=== PATIENT | female | born 2000 | race Caucasian/White ===

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

== ENCOUNTER 2019-05-03 09:02 | Emergency (ER) | payer MEDICAID ==
[2019-05-03 09:15] VITALS: BP 122/90
[2019-05-03] MEDS ORDERED: FAMOTIDINE 20 MG TABLET PO STA (09:33)
[2019-05-03] MEDS ORDERED: LIDOCAINE VISCOUS 2% 15 ML UDC MM STA (09:33)
[2019-05-03] MEDS ORDERED: MAG HYDROX/AL HYDROX/SIMETH 30 ML UDC PO STA (09:33)
[2019-05-03] MEDS ORDERED: PROMETHAZINE 25 MG TABLET PO STA (09:33)
[2019-05-03] MEDS ORDERED: traMADol 50 MG TABLET PO STA (09:34)
--- NOTE | 2019-05-03 10:35 | Ultrasound Report ---
Reason: upper abd pain for 3 days Procedure Date: 05/03/2019 Accession Number: [id number] / [id number] Procedure: US - Abdomen Limited CPT Code: FULL RESULT: EXAM: ABDOMEN ULTRASOUND LIMITED, RUQ EXAM DATE: 05/03/2019 10:20 AM. CLINICAL HISTORY: Upper abdominal pain for 3 days in a 18-year-old female, with nausea and vomiting. COMPARISON: None. TECHNIQUE: Real-time scanning was performed on an emergent basis, with static images obtained. FINDINGS: Liver: Mildly heterogeneous echogenicity, slightly increased density. No mass or cyst. Normal contour. Normal liver length at 16 cm. Main portal vein flow: Hepatopetal. Gallbladder: Normal. No stones, wall thickening, or sonographic Cheney's sign. Biliary System: CBD measures 4 mm. No intrahepatic or extrahepatic ductal dilatation. Pancreas: Well visualized and normal in appearance. Right kidney: 11.4 cm in length. Normal echogenicity. Benign-appearing mid renal cyst 1.2 cm in maximum diameter. No solid mass, nephrolithiasis or hydronephrosis. Other: No free fluid or lymphadenopathy in the visualized abdomen. IMPRESSION: Mildly echogenic liver consistent with early fatty infiltration. No mass or cyst. Otherwise normal gallbladder and right upper quadrant abdominal ultrasound study, without demonstrated cause for the patient's symptoms. RADIA
[2019-05-03] MEDS ORDERED: HYDROcod/ACETAM 5/325 MG TABLET PO STA (10:42)
--- NOTE | 2019-05-03 10:45 | ED Physician Documentation ---
PD HPI ABD PAIN - Stated complaint Stated Complaint: ABD PX - Chief complaint Chief Complaint: Abd Pain - History obtained from History obtained from: Patient, Family (mom) - History of Present Illness Timing - onset: How many days ago (4) Timing - duration: Days (4) Timing - details: Gradual onset, Waxing and waning Quality: Aching, Pain Location: RUQ, Epigastric Radiation: No: Chest, Lower back Improved by: No: Eating, Meds (tylenol at home, TUMs) Worsened by: Eating, Breathing, Palpation Associated symptoms: Nausea, Vomiting, Loss of appetite. No: Fever, Diarrhea, Constipation, Melena, Dysuria, Chest pain Similar symptoms before: Has not had sx before Recently seen: Not recently seen Review of Systems Constitutional: denies: Fever, Chills, Myalgias Nose: denies: Rhinorrhea / runny nose, Congestion Throat: denies: Sore throat Cardiac: denies: Chest pain / pressure Respiratory: denies: Dyspnea, Cough GI: reports: Abdominal Pain, Nausea, Vomiting. denies: Diarrhea, Hematemesis, Bloody / black stool : denies: Dysuria, Frequency Skin: denies: Rash, Lesions PD PAST MEDICAL HISTORY - Past Medical History Past Medical History: Yes Neuro: Migraines - Past Surgical History Past Surgical History: Yes HEENT: Tonsil/Adenoidectomy - Present Medications Home Medications: Ambulatory Orders Medication Instructions Recorded Confirmed Control 1 tab DAILY 05/03/19 Famotidine 20 mg PO BID #30 tablet 05/03/19 Hydrocodone/Acetaminophen [Randall 1 each PO Q6H PRN #15 tablet 05/03/19 5-325 Tablet] Lidocaine Viscous 2% [Xylocaine 5 ml PO Q4H PRN #100 ml 05/03/19 Viscous 2%] Promethazine [Phenergan] 25 mg PO Q6H PRN #15 tab 05/03/19 - Allergies Allergies/Adverse Reactions: Allergies Allergy/AdvReac Type Severity Reaction Status Date / Time No Known Drug Allergies Allergy Verified 05/03/19 09:15 - Social History Does the pt smoke?: No Smoking Status: Never smoker Does the pt drink ETOH?: No Does the pt have substance abuse?: No - Immunizations Immunizations are current?: Yes - POLST Patient has POLST: No PD ED PE NORMAL - Vitals Vital signs reviewed: Yes - General General: Alert and oriented X 3, Well developed/nourished, Other (appears unco mfortable with upper abd pain) - HEENT HEENT: PERRL (nonicteric), Ears normal, Pharynx benign - Neck Neck: Supple, no meningeal sign, No adenopathy - Cardiac Cardiac: RRR, No murmur - Respiratory Respiratory: Clear bilaterally - Abdomen Abdomen: Normal bowel sounds, Soft, Non distended, No organomegaly, Other (Tender in the epigastric to right upper quadrant area. There is a negative Cheney sign but still some tender to the right upper abdomen as well. There is no percussion or rebound tenderness. The lower abdomen is not tender and does not refer to the upper abdomen.) - Female Female : Deferred - Rectal Rectal: Deferred - Back Back: No CVA TTP - Derm Derm: Normal color, Warm and dry - Neuro Neuro: Alert and oriented X 3, No motor deficit, Normal speech Results - Vitals Vitals: Vital Signs - 24 hr 05/03/19 09:07 Temperature 36 C L Heart Rate 72 Respiratory 16 Rate Blood Pressure 122/90 H O2 Saturation 100 Oxygen O2 Source Room air - Rads (name of study) abd U/S Radiology: Prelim report reviewed (normal GB; right renal cyst.), See rad report PD MEDICAL DECISION MAKING - ED course Complexity details: reviewed results (Ultrasound was normal. She was hurting more after the ultrasound due to the palpation. She had declined blood tests. I think her symptoms sound gastritis or ulcer and can treat it that way.), considered differential (Patient is adamant about not wanting blood drawn or IV due to significant needle phobia and anxiety. I told her and mom we could work with her and get the ultrasound and empirically try some medications. However if not improving well over the next couple of days or few days then might need to work around it and get some IV fluids and medicines and lab blood tests.), d/w patient Departure - Departure Disposition: 01 Home, Self Care Clinical Impression: Abdominal pain Qualifiers: Abdominal location: upper abdomen, unspecified Qualified Code(s): R10.10 - Upper abdominal pain, unspecified Condition: Stable Record reviewed to determine appropriate education?: Yes Instructions: ED PUD, ED Epigastric Pain UKO Follow-Up: Radha Mai ARNP [Primary Care Provider] - Prescriptions: Famotidine 20 mg PO BID #30 tablet Hydrocodone/Acetaminophen [Randall 5-325 Tablet] 1 each PO Q6H PRN #15 tablet PRN Reason: Pain Lidocaine Viscous 2% [Xylocaine Viscous 2%] 5 ml PO Q4H PRN #100 ml PRN Reason: Pain Promethazine [Phenergan] 25 mg PO Q6H PRN #15 tab PRN Reason: Nausea / Vomiting Comments: Your ultrasound shows a normal gallbladder and no obvious problems of the liver. There is incidentally a cyst on your kidney that should not be causing any of the symptoms. Your symptoms are most likely an irritation of the stomach, either gastritis or ulcer. These will be treated with acid reducing medicine and something to coat the stomach periodically. You can use promethazine for nausea as well and add Tylenol or hydrocodone if needed for pain. Do not take any aspirin or anti-inflammatories as this can bother her stomach more. Use antacids regularly and can combine the lidocaine with it. Recheck if not improving over the next few days and return sooner if worsening. If you are not improving well or worsening, would need to consider more strongly the need for IV medications and blood tests. I think you should get better with the above treatments however and not need those. Discharge Date/Time: 05/03/19 10:58
== END 2019-05-03 10:58 | disposition home or self-care (01) ==
LOC: ED 09:02
DX: R10.10 Upper abdominal pain, unspecified (principal)
CPT/HCPCS: 76705; 99283; A9270; Q0169

== ENCOUNTER 2019-11-06 11:04 | Emergency (ER) | payer MEDICAID ==
--- NOTE | 2019-11-06 12:10 | ED Physician Documentation ---
PD HPI URI - Stated complaint Stated Complaint: FLU LIKE SYMPTOMS - Chief complaint Chief Complaint: Resp - History obtained from History obtained from: Patient - History of Present Illness Timing - onset: How many days ago (3) Timing duration: Days (3) Timing details: Abrupt onset, Still present Associated symptoms: Fever, Chills, Nasal congestion, Dry cough, NVD (poor intake for 2 days.). No: Sore throat, Chest pain Contributing factors: No: Sick contact, Travel, Immunocompromised (She is not immunocompromised but is being evaluated at the by neurology and previously by endocrinology for ongoing fatigue and other neurologic symptoms, With current diagnosis of dysautonomia.) Improves by: No: Medication Worsened by: Activity Similar symptoms before: Has not had sx before Recently seen: Not recently seen Review of Systems Constitutional: reports: Fever, Chills, Myalgias Nose: denies: Rhinorrhea / runny nose, Congestion Throat: denies: Sore throat Respiratory: reports: Cough GI: reports: Nausea, Vomiting, Diarrhea. denies: Abdominal Pain : denies: Dysuria, Frequency Skin: denies: Rash, Lesions Neurologic: reports: Generalized weakness, Altered mental status (seemed slightly confused this morning, per mom.), Headache. denies: Focal weakness, Numbness, Near syncope Endocrine: denies: Weight loss Immunocompromised: denies: Immunocompromised PD PAST MEDICAL HISTORY - Past Medical History Neuro: Migraines - Past Surgical History Past Surgical History: Yes HEENT: Tonsil/Adenoidectomy - Present Medications Home Medications: Ambulatory Orders Medication Instructions Recorded Confirmed Butalb/Acetaminophen/Caffeine 1 each PO Q8H PRN #20 capsule 11/06/19 [Rcpwmv-Fqhcjptj-Qukz 50-325-40] Hydrocodone/Acetaminophen [Norman 1 each PO Q6H PRN #15 tablet 11/06/19 5-325 Tablet] Norethindrone [Darling] 0.35 mg PO DAILY 11/06/19 11/06/19 Omeprazole 20 mg PO DAILY 11/06/19 11/06/19 Ondansetron Odt [Zofran] 4 mg TL Q6H PRN #20 tablet 11/06/19 Prestique 50 mg ORAL DAILY 11/06/19 Promethazine Supp [Phenergan Supp] 25 mg SD Q6H PRN #6 supp 11/06/19 dexAMETHasone [Decadron] 4 mg PO DAILY #7 tablet 11/06/19 traZODone [Desyrel] 50 mg PO ONCE 11/06/19 11/06/19 - Allergies Allergies/Adverse Reactions: Allergies Allergy/AdvReac Type Severity Reaction Status Date / Time No Known Drug Allergies Allergy Verified 11/06/19 11:23 - Social History Does the pt smoke?: No Smoking Status: Never smoker Does the pt drink ETOH?: No Does the pt have substance abuse?: No - Immunizations Immunizations are current?: Yes - POLST Patient has POLST: No PD ED PE NORMAL - Vitals Vital signs reviewed: Yes - General General: Alert and oriented X 3, Well developed/nourished, Other (seems generally weak and ill) - HEENT HEENT: Ears normal, Pharynx benign. No: Moist mucous membranes - Neck Neck: Supple, no meningeal sign, No adenopathy - Cardiac Cardiac: No murmur. No: RRR (regular but tachycardic) - Respiratory Respiratory: Clear bilaterally - Abdomen Abdomen: Normal bowel sounds, Soft, Non tender, Non distended - Back Back: No CVA TTP - Derm Derm: Normal color, Warm and dry - Extremities Extremities: No deformity, No tenderness to palpate, Normal ROM s pain, No edema, No calf tenderness / cord - Neuro Neuro: Alert and oriented X 3, No motor deficit, Normal speech Eye Opening: Spontaneous Motor: Obeys Commands Verbal: Oriented GCS Score: 15 Results - Vitals Vitals: Vital Signs - 24 hr 11/06/19 11/06/19 11/06/19 11:17 13:23 13:37 Temperature 37.2 C Heart Rate 141 H 97 Respiratory 20 18 16 Rate Blood Pressure 120/71 118/84 H O2 Saturation 100 99 88 L 11/06/19 11/06/19 13:38 15:56 Temperature Heart Rate 86 Respiratory 16 18 Rate Blood Pressure 142/76 H O2 Saturation 94 98 Oxygen O2 Source Room air - Labs Labs: Laboratory Tests 11/06/19 11/06/19 11/06/19 13:05 13:09 13:09 WBC 7.0 RBC 4.84 Hgb 14.4 Hct 42.5 MCV 87.8 MCH 29.8 MCHC 33.9 RDW 12.1 Plt Count 241 MPV 10.1 Neut # (Auto) 6.1 Lymph # (Auto) 0.5 L Foard # (Auto) 0.4 Eos # (Auto) 0.0 Baso # (Auto) 0.0 Absolute Nucleated RBC 0.00 Nucleated RBC % 0.0 Sodium 136 Potassium 3.7 Chloride 101 Carbon Dioxide 23 Anion Gap 12.0 BUN 12 Creatinine 0.8 Estimated GFR (MDRD) 91 Glucose 92 Calcium 9.2 Magnesium 1.8 Total Bilirubin 0.4 AST 29 ALT 43 Alkaline Phosphatase 78 Total Protein 7.5 Albumin 4.6 Globulin 2.9 Albumin/Globulin Ratio 1.6 Lipase 31 TSH Influenza A (Rapid) Negative Influenza B (Rapid) POSITIVE H 11/06/19 13:09 WBC RBC Hgb Hct MCV MCH MCHC RDW Plt Count MPV Neut # (Auto) Lymph # (Auto) Foard # (Auto) Eos # (Auto) Baso # (Auto) Absolute Nucleated RBC Nucleated RBC % Sodium Potassium Chloride Carbon Dioxide Anion Gap BUN Creatinine Estimated GFR (MDRD) Glucose Calcium Magnesium Total Bilirubin AST ALT Alkaline Phosphatase Total Protein Albumin Globulin Albumin/Globulin Ratio Lipase TSH 1.29 Influenza A (Rapid) Influenza B (Rapid) PD MEDICAL DECISION MAKING - ED course Complexity details: re-evaluated patient (feels much better with IV fluids and meds. Re-exam showing alertness, supple neck, able to take PO fluids/food. ), considered differential, d/w patient Departure - Departure Disposition: 01 Home, Self Care Clinical Impression: Influenza B, Dehydration, Generalized weakness Headache Qualifiers: Headache type: unspecified Headache chronicity pattern: acute headache Intractability: not intractable Qualified Code(s): R51 - Headache Condition: Stable Record reviewed to determine appropriate education?: Yes Instructions: ED Dehydration, ED Flu Follow-Up: Radha Mai ARNP [Primary Care Provider] - Prescriptions: Butalb/Acetaminophen/Caffeine [[id number] 50-325-40] 1 each PO Q8H PRN #20 capsule PRN Reason: Migraine dexAMETHasone [Decadron] 4 mg PO DAILY #7 tablet Hydrocodone/Acetaminophen [Norman 5-325 Tablet] 1 each PO Q6H PRN #15 tablet PRN Reason: Pain Ondansetron Odt [Zofran] 4 mg TL Q6H PRN #20 tablet PRN Reason: Nausea / Vomiting Promethazine Supp [Phenergan Supp] 25 mg SD Q6H PRN #6 supp PRN Reason: Nausea / Vomiting Comments: Frequent fluids and try to stay well-hydrated. Your flu B test is positive. Use ondansetron if needed for nausea. Promethazine suppositories if needed for vomiting despite the ondansetron. Decadron steroid for inflammation to decrease symptoms. Take this daily for the next week. Add Tylenol or ibuprofen if needed for fevers and pains. Add hydrocodone if needed for worse pain. Fioricet if needed for migraine type headaches. Continue your other usual medicines. Expect about 7 to 10 days of illness with the worst being the first 3 to 5 days. Activity as tolerated. Recheck if not improved well over the next few days. Discharge Date/Time: 11/06/19 16:23
--- NOTE | 2019-11-06 12:12 | XRAY Report ---
Reason: productive cough, AMS Procedure Date: 11/06/2019 Accession Number: [id number] / [id number] Procedure: XR - Chest 2 View X-Ray CPT Code: 09049 Final Report FULL RESULT: EXAM: CHEST RADIOGRAPHY 2 VIEWS EXAM DATE: 11/06/2019. CLINICAL HISTORY: Productive cough. Altered mental status. COMPARISON: None. TECHNIQUE: PA and lateral views. FINDINGS: Lungs/Pleura: Normal vasculature. The lungs are clear. No pleural fluid or pneumothorax. Mediastinum: Normal cardiac and mediastinal contours. Bones: Mild dextroconvex thoracic scoliosis. IMPRESSION: No radiographic cardiopulmonary abnormality. RADIA
[2019-11-06] MEDS ORDERED: ONDANSETRON 4 MG/2 ML VIAL IVP STA (12:25)
[2019-11-06] MEDS ORDERED: SODIUM CHLORIDE 0.9% 1,000 ML IV ONE ×2 (12:25→12:26)
[2019-11-06] MEDS ORDERED: HYDROmorphone 2 MG/ML VIAL IVP STA (12:25)
[2019-11-06] MEDS ORDERED: DEXAMETHASONE 10 MG/ML VIAL IVP STA (12:25)
[2019-11-06] MEDS ORDERED: FAMOTIDINE 20 MG/2 ML VIAL IVP STA (12:25)
[2019-11-06 13:17] LABS: BASOPHILS % (AUTO) 0.1 %; EOSINOPHILS % (AUTO) 0.1 %; HGB - HEMOGLOBIN 14.4 g/dL (12.0-16.0); LYMPHOCYTES # (AUTO) 0.5 10^3/uL (1.5-3.5); LYMPHOCYTES % (AUTO) 7.4 %; MEAN CORPUSCULAR HEMOGLOBIN 29.8 pg (27.0-31.0); MEAN CORPUSCULAR HGB CONC 33.9 g/dL (32.0-36.0); MEAN CORPUSCULAR VOLUME 87.8 fL (81.0-99.0); MEAN PLATELET VOLUME 10.1 fL (7.9-10.8); MONOCYTES # (AUTO) 0.4 10^3/uL (0.0-1.0); NEUTROPHILS # (AUTO) 6.1 10^3/uL (1.5-6.6); PLT - PLATELET COUNT 241 10^3/uL (130-450); RED BLOOD COUNT 4.84 10^6/uL (4.20-5.40); RED CELL DISTRIBUTION WIDTH 12.1 % (12.0-15.0)
[2019-11-06 13:29] LABS: ALBUMIN 4.6 g/dL (3.2-5.5); ALBUMIN/GLOBULIN RATIO 1.6 (1.0-2.2); BILIRUBIN,TOTAL 0.4 mg/dL (0.2-1.0); CALCIUM 9.2 mg/dL (8.5-10.3); CREATININE 0.8 mg/dL (0.4-1.0); MAGNESIUM 1.8 mg/dL (1.7-2.8); TOTAL PROTEIN 7.5 g/dL (6.7-8.2)
[2019-11-06 15:57] VITALS: BP 142/76
== END 2019-11-06 16:23 | disposition home or self-care (01) ==
LOC: ED 11:04
DX: J10.89 Influenza due to other identified influenza virus with other manifestations (principal); J10.2 Influenza due to other identified influenza virus with gastrointestinal manifestations; E86.0 Dehydration; R51 Headache; R53.1 Weakness; R50.9 Fever, unspecified
CPT/HCPCS: 36415; 71046; 80053; 83690; 83735; 84443; 85025; 87275; 87276; 96361; 96374; 99284; 99285; J1170

== ENCOUNTER 2019-12-12 12:14 | Outpatient (CLI) | payer MEDICAID | END 2019-12-12 12:15 | disposition home or self-care (01) | LOC: LAB 12:14 | PROVIDERS: ATTEND Psychiatry & Neurology Neurology | DX: I95.1 Orthostatic hypotension (principal); G90.3 Multi-system degeneration of the autonomic nervous system; G90.09 Other idiopathic peripheral autonomic neuropathy | CPT/HCPCS: 36415; 80500; 81599; 82384; 82784; 82785; 83088; 83520; 83835; 85613; 85730; 86146; 86147; 86235; 86316; 86334 ==

== ENCOUNTER 2019-12-14 08:00 | Outpatient (CLI) | payer MEDICAID | END 2019-12-14 23:59 | disposition home or self-care (01) | LOC: LAB.R 08:00 | PROVIDERS: ATTEND Psychiatry & Neurology Neurology | DX: I95.1 Orthostatic hypotension (principal) | CPT/HCPCS: 81599; 83088; 83497 ==

== ENCOUNTER 2020-01-03 05:45 | Outpatient (CLI) | payer MEDICAID | END 2020-01-03 05:46 | disposition EMS.NT | LOC: EMS 05:45 | PROVIDERS: ATTEND Surgery | DX: R11.2 Nausea with vomiting, unspecified (principal) ==

== ENCOUNTER 2020-01-11 15:40 | Outpatient (CLI) | payer MEDICAID | END 2020-01-11 15:41 | disposition critical access hospital (66) | LOC: EMS 15:40 | PROVIDERS: ATTEND Surgery | DX: R53.1 Weakness (principal); R52 Pain, unspecified | CPT/HCPCS: A0425; A0429; A0999 ==

== ENCOUNTER 2020-01-11 16:15 | Emergency (ER) | payer MEDICAID ==
[2020-01-11 16:36] VITALS: BP 150/128
== END 2020-01-11 16:42 | disposition left against medical advice (07) ==
LOC: EDUNIT# → ED 16:15
DX: Z53.21 Procedure and treatment not carried out due to patient leaving prior to being seen by health care provider (principal)

== ENCOUNTER 2020-06-30 04:23 | Outpatient (CLI) | payer MEDICAID | END 2020-06-30 04:24 | disposition critical access hospital (66) | LOC: EMS 04:23 | PROVIDERS: ATTEND Surgery | DX: F41.9 Anxiety disorder, unspecified (principal); R44.9 Unspecified symptoms and signs involving general sensations and perceptions | CPT/HCPCS: A0425; A0427 ==

== ENCOUNTER 2020-06-30 04:53 | Emergency (ER) | payer MEDICAID ==
--- NOTE | 2020-06-30 05:03 | ED Physician Documentation ---
History of Present Illness - Stated complaint Stated Complaint: PAIN - Chief complaint Chief Complaint: General - History obtained from History obtained from: Patient - Additonal information Additional information: The patient is a 19-year-old female brought in by ambulance for dehydration. She reports that she chronically gets dehydrated and has to come into the emergency room periodically for IV fluids she also reports that she has myasthenia gravis as well she denies any acute weakness or fevers she reports she does not feel as energetic as her usual self she also reports that she has not been able to eat or drink anything for the last 48 hours and has not peed in over a day.Otherwise she denies any other complaints and she is asking for 2 bags of IV fluids. Review of Systems Constitutional: reports: Fatigue Eyes: reports: Reviewed and negative Ears: reports: Reviewed and negative Nose: reports: Reviewed and negative Throat: reports: Reviewed and negative Cardiac: reports: Reviewed and negative Respiratory: reports: Reviewed and negative GI: reports: Reviewed and negative : reports: Reviewed and negative Skin: reports: Reviewed and negative Musculoskeletal: reports: Reviewed and negative Neurologic: reports: Generalized weakness Psychiatric: reports: Reviewed and negative Endocrine: reports: Reviewed and negative Immunocompromised: reports: Reviewed and negative PD PAST MEDICAL HISTORY - Past Medical History Neuro: Migraines - Past Surgical History Past Surgical History: Yes HEENT: Tonsil/Adenoidectomy - Present Medications Home Medications: Ambulatory Orders Medication Instructions Recorded Confirmed Butalb/Acetaminophen/Caffeine 1 each PO Q8H PRN #20 capsule 11/06/19 04/03/20 [Labipj-Gtntfohj-Dnwy 50-325-40] Hydrocodone/Acetaminophen [Harrison 1 each PO Q6H PRN #15 tablet 11/06/19 04/03/20 5-325 Tablet] Norethindrone [Darling] 0.35 mg PO DAILY 11/06/19 04/03/20 Omeprazole 20 mg PO DAILY 11/06/19 04/03/20 Prestique 50 mg ORAL DAILY 11/06/19 04/03/20 traZODone [Desyrel] 50 mg PO ONCE 11/06/19 04/03/20 Ondansetron Odt [Zofran] 4 mg TL Q6H PRN #10 tablet 01/03/20 04/03/20 - Allergies Allergies/Adverse Reactions: Allergies Allergy/AdvReac Type Severity Reaction Status Date / Time No Known Drug Allergies Allergy Verified 06/30/20 05:01 - Social History Does the pt smoke?: No Smoking Status: Never smoker Does the pt drink ETOH?: No Does the pt have substance abuse?: No - Immunizations Immunizations are current?: Yes - POLST Patient has POLST: No PD ED PE NORMAL - Vitals Vital signs reviewed: Yes - General General: Alert and oriented X 3, No acute distress, Well developed/nourished - HEENT HEENT: Atraumatic, PERRL, EOMI, Ears normal, Moist mucous membranes, Pharynx benign, Dentition benign - Neck Neck: Supple, no meningeal sign, No adenopathy, Thyroid normal, No JVD - Cardiac Cardiac: RRR, No murmur, No gallop, No rub, Strong equal pulses - Respiratory Respiratory: No respiratory distress, Clear bilaterally - Abdomen Abdomen: Normal bowel sounds, Soft, Non tender, Non distended, No organomegaly - Female Female : Deferred - Rectal Rectal: Deferred - Back Back: No CVA TTP, No spinal TTP - Derm Derm: Normal color, Warm and dry, No rash - Extremities Extremities: No deformity, No tenderness to palpate, Normal ROM s pain, No edema, No calf tenderness / cord - Neuro Neuro: Alert and oriented X 3, 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, No motor deficit, No sensory deficit, Normal speech - Psych Psych: Normal mood, Normal affect Results - Vitals Vitals: Vital Signs - 24 hr 06/30/20 06/30/20 05:01 05:04 Temperature 37 C Heart Rate 96 104 H Respiratory 18 18 Rate Blood Pressure 116/88 H 127/75 O2 Saturation 100 98 Oxygen O2 Source Room air - Labs Labs: Laboratory Tests 06/30/20 06/30/20 05:32 05:32 WBC 8.1 RBC 3.81 L Hgb 11.4 L Hct 34.2 L MCV 89.8 MCH 29.9 MCHC 33.3 RDW 11.9 L Plt Count 256 MPV 9.8 Neut # (Auto) 4.4 Lymph # (Auto) 2.9 Roberts # (Auto) 0.6 Eos # (Auto) 0.2 Baso # (Auto) 0.0 Absolute Nucleated RBC 0.00 Nucleated RBC % 0.0 Sodium 138 Potassium 3.5 Chloride 104 Carbon Dioxide 24 Anion Gap 10.0 BUN 17 Creatinine 0.7 Estimated GFR (MDRD) 107 Glucose 100 Calcium 8.4 L Total Bilirubin 0.6 AST 20 ALT 28 Alkaline Phosphatase 80 Total Protein 6.0 L Albumin 3.7 Globulin 2.3 Albumin/Globulin Ratio 1.6 Lipase 29 PD MEDICAL DECISION MAKING - ED course Complexity details: considered differential (Possible dehydration her vital signs are unremarkable she is afebrile she is not tachycardic not hypotensive given the fact that the patient's that she has not had anything to eat or drink for 2 days we will hydrate this patient with 2 L of IV fluids), other (CBC and CMP are unremarkable. Patient observed for about an hour and a half she is tolerated p.o. challenge now is requesting to be discharged home.) Departure - Departure Disposition: 01 Home, Self Care Clinical Impression: Muscle weakness, Dehydration Condition: Stable Instructions: ED Weakness UKO, ED Dehydration Follow-Up: your, doctor [Other] Comments: please follow up with your primary care provider today.
[2020-06-30] MEDS ORDERED: SODIUM CHLORIDE 0.9% 1,000 ML IV STA ×2 (05:23→05:50)
[2020-06-30 05:37] LABS: BASOPHILS % (AUTO) 0.5 %; EOSINOPHILS # (AUTO) 0.2 10^3/uL (0.0-0.7); HGB - HEMOGLOBIN 11.4 g/dL (12.0-16.0); LYMPHOCYTES # (AUTO) 2.9 10^3/uL (1.5-3.5); LYMPHOCYTES % (AUTO) 35.9 %; MEAN CORPUSCULAR HEMOGLOBIN 29.9 pg (27.0-31.0); MEAN CORPUSCULAR HGB CONC 33.3 g/dL (32.0-36.0); MEAN CORPUSCULAR VOLUME 89.8 fL (81.0-99.0); MEAN PLATELET VOLUME 9.8 fL (7.9-10.8); MONOCYTES # (AUTO) 0.6 10^3/uL (0.0-1.0); MONOCYTES % (AUTO) 7.1 %; NEUTROPHILS # (AUTO) 4.4 10^3/uL (1.5-6.6); NEUTROPHILS % (AUTO) 54.3 %; PLT - PLATELET COUNT 256 10^3/uL (130-450); RED BLOOD COUNT 3.81 10^6/uL (4.20-5.40); RED CELL DISTRIBUTION WIDTH 11.9 % (12.0-15.0); WHITE BLOOD COUNT 8.1 x10^3/uL (4.8-10.8)
[2020-06-30 05:52] LABS: ALBUMIN 3.7 g/dL (3.2-5.5); ALBUMIN/GLOBULIN RATIO 1.6 (1.0-2.2); BILIRUBIN,TOTAL 0.6 mg/dL (0.2-1.0); CALCIUM 8.4 mg/dL (8.5-10.3); CREATININE 0.7 mg/dL (0.4-1.0)
[2020-06-30 06:52] VITALS: BP 90/48
== END 2020-06-30 07:05 | disposition home or self-care (01) ==
LOC: ED 04:53
DX: E86.0 Dehydration (principal); M62.81 Muscle weakness (generalized); G70.00 Myasthenia gravis without (acute) exacerbation
CPT/HCPCS: 36415; 80053; 83690; 85025; 96361; 96374; 99283

== ENCOUNTER 2020-07-01 15:15 | Outpatient (CLI) | payer MEDICAID ==
--- NOTE | 2020-07-01 17:11 | CT Report ---
PROCEDURE: CHEST WO INDICATIONS: MYASTHENIA GRAVIS WITH EXACERBATION TECHNIQUE: Noncontrast 5 mm thick sections acquired from the pulmonary apices to the posterior costophrenic angl es. 7 mm thick coronal and sagittal MIP reformats were then acquired. For radiation dose reduction, the following was used: automated exposure control, adjustment of mA and/or kV according to patient size. COMPARISON: Two-view chest 11/16/2019. FINDINGS: Image quality: Excellent. Lungs and pleura: No acute air space opacities. No pleural effusions or pneumothorax. Central and peripheral airways are patent and normal in caliber. Mediastinum: Heart size is normal. No pericardial effusion. No mediastinal adenopathy by size crit eria. Thoracic aorta and central pulmonary arteries are normal in size. Esophagus is normal in gwendolyn leyla. No hiatal hernia. There is a Port-A-Cath from a right-sided approach extending into the distal SVC. Bones and chest wall: No suspicious bony lesions. No vertebral body compression fractures. No axil jesse or supraclavicular adenopathy by size criteria. The thyroid is normal in size. Abdomen: Visualized upper abdominal solid organs and bowel loops appear normal in the absence of con trast. IMPRESSION: Port-A-Cath in normal position. No mediastinal or hilar mass is found, no abnormal soft tissue promin ence is seen within the anterior mediastinum. The study is performed without intravenous contrast and therefore quality of visualization of the solid organs of the upper abdomen and the mediastinal stru ctures is somewhat limited. No acute disease. Reviewed by: Kolton Child MD on 07/01/2020 5:10 PM PDT Approved by: Kolton Child MD on 07/01/2020 5:10 PM PDT Station ID: [id number]
== END 2020-07-01 15:16 | disposition home or self-care (01) ==
LOC: DI 15:15
PROVIDERS: ATTEND Psychiatry & Neurology Neurology
DX: G70.01 Myasthenia gravis with (acute) exacerbation (principal); Z95.828 Presence of other vascular implants and grafts
CPT/HCPCS: 71250

== ENCOUNTER 2020-07-03 00:46 | Emergency (ER) | payer MEDICAID ==
--- NOTE | 2020-07-03 01:01 | ED Physician Documentation ---
PD HPI ABD PAIN - Stated complaint Stated Complaint: ABD PX - Chief complaint Chief Complaint: Abd Pain - History obtained from History obtained from: Patient - History of Present Illness Timing - onset: How many days ago (4) Timing - duration: Days (4) Timing - details: Waxing and waning Quality: Cramping Location: Other (across lower abdomen) Improved by: Other (nothing) Worsened by: Other ( no exacerbating factors) Associated symptoms: Nausea, Vomiting. No: Fever, Diarrhea, Constipation, Vaginal bleeding, Vaginal dc Similar symptoms before: Other (patient says she has not had this abdominal pain before) Recently seen: Emergency Dept (T+R 06/30/20 for nausea vomiting; ROS indicates cramping abdominal pain but patient says she has not had this abdominal pain before) - Additional information Additional information: c/o 4 days of lower abdominal cramping pains with nausea and vomiting. At that time she had unremarkable blood tests and improved with IV fluids. She says she took zofran tonight without improvement. She says she is not , cites recent negative test (2 weeks ago to clear her for chest port placement), and that she is also on oral BCP. She is sexually active Review of Systems Constitutional: denies: Fever, Chills, Sweats Cardiac: reports: Reviewed and negative Respiratory: reports: Reviewed and negative GI: reports: Abdominal Pain, Nausea, Vomiting. denies: Abdominal Swelling, Constipation, Diarrhea : denies: Now EGA (patient says she had negative test approximately 2 weeks ago to clear her for having chest port placed (in anticipation of IVIG for recently diagnosed myasthenia gravis),) PD PAST MEDICAL HISTORY - Past Medical History Neuro: Migraines - Past Surgical History Past Surgical History: Yes HEENT: Tonsil/Adenoidectomy - Present Medications Home Medications: Ambulatory Orders Medication Instructions Recorded Confirmed Butalb/Acetaminophen/Caffeine 1 each PO Q8H PRN #20 capsule 11/06/19 04/03/20 [Uqwywj-Xrazcydd-Skgi 50-325-40] Hydrocodone/Acetaminophen [[place] 1 each PO Q6H PRN #15 tablet 11/06/19 04/03/20 5-325 Tablet] Norethindrone [Darling] 0.35 mg PO DAILY 11/06/19 04/03/20 Omeprazole 20 mg PO DAILY 11/06/19 04/03/20 Prestique 50 mg ORAL DAILY 11/06/19 04/03/20 traZODone [Desyrel] 50 mg PO ONCE 11/06/19 04/03/20 Ondansetron Odt [Zofran] 4 mg TL Q6H PRN #10 tablet 01/03/20 04/03/20 - Allergies Allergies/Adverse Reactions: Allergies Allergy/AdvReac Type Severity Reaction Status Date / Time No Known Drug Allergies Allergy Verified 07/03/20 01:00 - Social History Does the pt smoke?: No Smoking Status: Never smoker Does the pt drink ETOH?: No Does the pt have substance abuse?: No - Immunizations Immunizations are current?: Yes - POLST Patient has POLST: No PD ED PE NORMAL - Vitals Vital signs reviewed: Yes - General General: Alert and oriented X 3, No acute distress, Well developed/nourished - HEENT HEENT: Moist mucous membranes - Neck Neck: Supple, no meningeal sign - Cardiac Cardiac: RRR, No murmur - Respiratory Respiratory: No respiratory distress, Clear bilaterally - Abdomen Abdomen: Soft, Non tender - Back Back: No CVA TTP - Derm Derm: Normal color, Warm and dry Results - Vitals Vitals: Vital Signs - 24 hr 07/03/20 07/03/20 07/03/20 00:50 01:01 02:21 Temperature 35.8 C L Heart Rate 98 88 72 Respiratory 18 18 16 Rate Blood Pressure 118/77 118/77 129/85 H O2 Saturation 97 98 98 07/03/20 07/03/20 04:00 06:00 Temperature Heart Rate 78 80 Respiratory 16 16 Rate Blood Pressure 132/70 H 149/98 H O2 Saturation 100 100 Oxygen O2 Source Room air - Labs Labs: Laboratory Tests 07/03/20 07/03/20 07/03/20 01:30 01:30 01:30 WBC 8.7 RBC 4.37 Hgb 13.0 Hct 38.6 MCV 88.3 MCH 29.7 MCHC 33.7 RDW 11.8 L Plt Count 266 MPV 10.0 Neut # (Auto) 4.9 Lymph # (Auto) 3.0 [place] # (Auto) 0.6 Eos # (Auto) 0.2 Baso # (Auto) 0.0 Absolute Nucleated RBC 0.00 Nucleated RBC % 0.0 Sodium 136 Potassium 3.7 Chloride 105 Carbon Dioxide 24 Anion Gap 7.0 BUN 11 Creatinine 0.6 Estimated GFR (MDRD) 127 Glucose 95 Calcium 9.0 Total Bilirubin 0.7 AST 22 ALT 30 Alkaline Phosphatase 71 Total Protein 6.8 Albumin 4.3 Globulin 2.5 Albumin/Globulin Ratio 1.7 Lipase 30 Serum HCG, Qual POSITIVE HCG, Quant 07/03/20 01:30 WBC RBC Hgb Hct MCV MCH MCHC RDW Plt Count MPV Neut # (Auto) Lymph # (Auto) [place] # (Auto) Eos # (Auto) Baso # (Auto) Absolute Nucleated RBC Nucleated RBC % Sodium Potassium Chloride Carbon Dioxide Anion Gap BUN Creatinine Estimated GFR (MDRD) Glucose Calcium Total Bilirubin AST ALT Alkaline Phosphatase Total Protein Albumin Globulin Albumin/Globulin Ratio Lipase Serum HCG, Qual HCG, Quant 73397.00 - Rads (name of study) pelvic US Radiology: Prelim report reviewed, See rad report PD MEDICAL DECISION MAKING - ED course Complexity details: reviewed old records, reviewed results, re-evaluated patient, considered differential, d/w patient ED course: I initially ordered CT A/P for abdominal pain with mild TTP across lower abdomen and epigastrium. monogram technician informed me that patient was not as confident in denying possibility of as patient was when I interviewed her, and thus HCG ordered (serum ordered, as patient did not feel like she was able to provide urine sample). The serum HCG returned (+), and subsequent quantitative results is over 22,000. US reveals IUP, 5w5d by US. Patient was given toradol and zofran along with IV fluids on presentation, which provided symptomatic improvement. Results d/w patient, she is very distressed by the results and tells me she wants to have the terminated as soon as possible, asks if there is a pharmaceutical (medication) option for this. I d/w Dr. Pugh, feels that misoprostol would be a good option if patient wants to terminate the , but that the effectiveness would potentially be countered by the toradol, and thus recommendation is d/c with follow up later this morning in customer sales advisor office. I discussed with the patient and she is comfortable with this approach. Given two tablets PO vicodin prior to d/c due to gradually returning abdominal/pelvic pain. Patient's initial exam and repeat exams are not suggestive of surgical abdominal emergent pathology. Departure - Departure Disposition: 01 Home, Self Care Clinical Impression: Abdominal pain Qualifiers: Abdominal location: lower abdomen, unspecified Qualified Code(s): R10.30 - Lower abdominal pain, unspecified Qualifiers: Weeks of gestation: less than 8 weeks Qualified Code(s): Z3A.01 - Less than 8 weeks gestation of Condition: Good Instructions: ED Pelvic Pain UKO, ED Preg Established Normal Sxs Follow-Up: Betzy Pugh MD [Provider Admit Priv/Credential] - (Follow up today before noon) Discharge Date/Time: 07/03/20 06:44
[2020-07-03] MEDS ORDERED: SODIUM CHLORIDE 0.9% 1,000 ML IV STA (01:25)
[2020-07-03 01:47] LABS: BASOPHILS % (AUTO) 0.3 %; EOSINOPHILS # (AUTO) 0.2 10^3/uL (0.0-0.7); EOSINOPHILS % (AUTO) 1.8 %; LYMPHOCYTES % (AUTO) 34.2 %; MEAN CORPUSCULAR HEMOGLOBIN 29.7 pg (27.0-31.0); MEAN CORPUSCULAR HGB CONC 33.7 g/dL (32.0-36.0); MEAN CORPUSCULAR VOLUME 88.3 fL (81.0-99.0); MONOCYTES # (AUTO) 0.6 10^3/uL (0.0-1.0); MONOCYTES % (AUTO) 6.3 %; NEUTROPHILS # (AUTO) 4.9 10^3/uL (1.5-6.6); NEUTROPHILS % (AUTO) 56.9 %; PLT - PLATELET COUNT 266 10^3/uL (130-450); RED BLOOD COUNT 4.37 10^6/uL (4.20-5.40); RED CELL DISTRIBUTION WIDTH 11.8 % (12.0-15.0); WHITE BLOOD COUNT 8.7 x10^3/uL (4.8-10.8)
[2020-07-03] MEDS ORDERED: ONDANSETRON 4 MG/2 ML VIAL IVP STA (01:54)
[2020-07-03] MEDS ORDERED: KETOROLAC 30 MG/ML VIAL IVP STA (01:54)
[2020-07-03 02:00] LABS: ALBUMIN 4.3 g/dL (3.2-5.5); ALBUMIN/GLOBULIN RATIO 1.7 (1.0-2.2); BILIRUBIN,TOTAL 0.7 mg/dL (0.2-1.0); CREATININE 0.6 mg/dL (0.4-1.0); TOTAL PROTEIN 6.8 g/dL (6.7-8.2)
[2020-07-03 02:49] LABS: HCG,QUALITATIVE BLOOD POSITIVE
[2020-07-03 06:17] VITALS: BP 149/98
[2020-07-03] MEDS ORDERED: HYDROcod/ACETAM 5/325 MG TABLET PO STA (06:27)
--- NOTE | 2020-07-03 10:18 | Ultrasound Report ---
PROCEDURE: OB First Trimester INDICATIONS: abd. pain, OUTSIDE/PRIOR DATING DATA: Last menstrual period (LMP): Unknown. LMP-based estimated date of delivery (DALIA): Unknown. First dating scan (date and location): 07/30/2020. Estimated date of delivery (DALIA) from first dating scan: 02/28/2021. TECHNIQUE: Real-time scanning was performed of the fetus and maternal pelvic organs, with image documentation. COMPARISON: None FINDINGS: Embryo: Live intrauterine is identified with crown-rump length measuring 0.2 cm correspond ing to 5 weeks 5 days. There is a 1 x 1.1 x 1.7 mm echogenic structure within the gestational sac jigar ng the peripheral margin. There is no associated clearly defined yolk sac or heart tones. Minim al subchorionic hemorrhage is noted. Measurement variability in dating: +/- 4 weeks by LMP, +/- 7 days by mean sac diameter (use before 6 weeks gestation if crown-rump length not able to be measured), +/- 5 days by crown-rump length (6-12 weeks gestation). Maternal organs: Ovaries demonstrate corpus luteal cyst. Limited images through the kidneys demonstr ate no hydronephrosis. IMPRESSION: 1. Intrauterine, live with crown-rump length measuring 5 weeks 5 days as above. 2. Minimal subchorionic hemorrhage. 3. 1 x 1.1 x 1.7 mm echogenic structure within the gestational sac along the peripheral margin as abo ve. There is no defined yolk sac or heart tones. It is not clearly defined. A second focus of pregnan cy cannot be excluded. Given early gestational age, recommend correlation of beta hCG levels and shor t interval imaging follow-up for additional evaluation of potential nonviable pole or potential development of viability. The above findings are concordant with preliminary report. Reviewed by: Lalita Anderson MD on 07/03/2020 10:16 AM PDT Approved by: Lalita Anderson MD on 07/03/2020 10:16 AM PDT Station ID: [id number]
== END 2020-07-03 06:44 | disposition home or self-care (01) ==
LOC: ED 00:46
DX: O99.89 Other specified diseases and conditions complicating pregnancy, childbirth and the puerperium (principal); R10.30 Lower abdominal pain, unspecified; Z3A.01 Less than 8 weeks gestation of pregnancy; Z32.01 Encounter for pregnancy test, result positive
CPT/HCPCS: 36415; 76801; 76817; 80053; 83690; 84702; 84703; 85025; 86900; 86901; 96374; 99284; A9270

== ENCOUNTER 2020-07-03 08:00 | Outpatient (CLI) | payer MEDICAID | END 2020-07-03 23:59 | disposition home or self-care (01) | LOC: LAB 08:00 | PROVIDERS: ATTEND Obstetrics & Gynecology | DX: Z32.01 Encounter for pregnancy test, result positive (principal) | CPT/HCPCS: 86900; 86901 ==

== ENCOUNTER 2020-08-10 18:05 | Emergency (ER) | payer MEDICAID ==
[2020-08-10] MEDS ORDERED: SODIUM CHLORIDE 0.9% 2,000 ML IV STA (18:37)
--- NOTE | 2020-08-10 19:16 | ED Physician Documentation ---
History of Present Illness - Stated complaint Stated Complaint: BODY PX/WEAK/CAN'T CONTROL MUSCLES - Chief complaint Chief Complaint: General - History obtained from History obtained from: Patient - History of Present Illness Timing: Today Pain level max: 0 Pain level now: 0 - Additonal information Additional information: Presents to the emergency department stating that she is having a "MS flare". She states that she received IVIG a week ago and since that time has had body aches, weakness and spasm. States she feels dehydrated. She states that she talk to her neurologist at [facility], Dr. Uriostegui who recommended she come to the emergency department for IV fluids and pain control. Patient states that she took a Vicodin and smoked marijuana without relief Review of Systems Ten Systems: 10 systems reviewed and negative Constitutional: denies: Fever, Chills Respiratory: denies: Cough GI: denies: Nausea, Vomiting, Diarrhea : denies: Dysuria Skin: denies: Rash Musculoskeletal: denies: Neck pain, Back pain Neurologic: reports: Generalized weakness. denies: Headache PD PAST MEDICAL HISTORY - Past Medical History Past Medical History: Yes Neuro: Migraines - Past Surgical History Past Surgical History: Yes HEENT: Tonsil/Adenoidectomy - Present Medications Home Medications: Ambulatory Orders Medication Instructions Recorded Confirmed Butalb/Acetaminophen/Caffeine 1 each PO Q8H PRN #20 capsule 11/06/19 04/03/20 [Ppmofw-Crhuyhuh-Mwnq 50-325-40] Hydrocodone/Acetaminophen [[place] 1 each PO Q6H PRN #15 tablet 11/06/19 04/03/20 5-325 Tablet] Norethindrone [Darling] 0.35 mg PO DAILY 11/06/19 04/03/20 Omeprazole 20 mg PO DAILY 11/06/19 04/03/20 Prestique 50 mg ORAL DAILY 11/06/19 04/03/20 traZODone [Desyrel] 50 mg PO ONCE 11/06/19 04/03/20 Ondansetron Odt [Zofran] 4 mg TL Q6H PRN #10 tablet 01/03/20 04/03/20 - Allergies Allergies/Adverse Reactions: Allergies Allergy/AdvReac Type Severity Reaction Status Date / Time No Known Drug Allergies Allergy Verified 08/10/20 18:32 - Social History Does the pt smoke?: No Smoking Status: Never smoker Does the pt drink ETOH?: No Does the pt have substance abuse?: No - Immunizations Immunizations are current?: Yes - POLST Patient has POLST: No PD ED PE NORMAL - Vitals Vital signs reviewed: Yes - General General: Alert and oriented X 3, No acute distress, Well developed/nourished - HEENT HEENT: PERRL, Moist mucous membranes - Neck Neck: Supple, no meningeal sign - Cardiac Cardiac: RRR, Strong equal pulses - Respiratory Respiratory: No respiratory distress, Clear bilaterally - Abdomen Abdomen: Soft, Non tender, Non distended - Derm Derm: Warm and dry - Extremities Extremities: No edema, No calf tenderness / cord - Neuro Neuro: Alert and oriented X 3, 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, No motor deficit, No sensory deficit, Normal speech - Psych Psych: Normal mood, Normal affect Results - Vitals Vitals: Vital Signs - 24 hr 08/10/20 08/10/20 18:32 21:02 Temperature 36.5 C 36.7 C Heart Rate 90 74 Respiratory 16 12 Rate Blood Pressure 116/81 H 101/66 O2 Saturation 98 98 Oxygen O2 Source Room air - Labs Labs: Laboratory Tests 08/10/20 08/10/20 08/10/20 20:09 20:10 20:10 WBC 5.5 RBC 4.32 Hgb 12.7 Hct 38.8 MCV 89.8 MCH 29.4 MCHC 32.7 RDW 11.9 L Plt Count 208 MPV 10.3 Neut # (Auto) 2.5 Lymph # (Auto) 2.3 [place] # (Auto) 0.4 Eos # (Auto) 0.2 Baso # (Auto) 0.0 Absolute Nucleated RBC 0.00 Nucleated RBC % 0.0 Sodium 137 Potassium 4.1 Chloride 103 Carbon Dioxide 26 Anion Gap 8.0 BUN 12 Creatinine 0.6 Estimated GFR (MDRD) 127 Glucose 97 Calcium 8.8 Total Bilirubin 0.4 AST 45 H ALT 70 H Alkaline Phosphatase 75 Total Protein 7.7 Albumin 3.6 Globulin 4.1 Albumin/Globulin Ratio 0.9 L Lipase 35 Urine Color YELLOW Urine Clarity CLEAR Urine pH 7.0 Ur Specific [place] 1.025 Urine Protein NEGATIVE Urine Glucose (UA) NEGATIVE Urine Ketones NEGATIVE Urine Occult Blood NEGATIVE Urine Nitrite NEGATIVE Urine Bilirubin NEGATIVE Urine Urobilinogen 0.2 (NORMAL) Ur Leukocyte Esterase NEGATIVE Ur Microscopic Review NOT INDICATED Urine Culture Comments NOT INDICATED Urine HCG, Qual NEGATIVE PD MEDICAL DECISION MAKING - ED course Complexity details: reviewed results, re-evaluated patient, considered differential, d/w patient, d/w family ED course: Patient feels better after IV fluids. She also received Toradol and morphine. Pain well controlled. Attempted to contact [facility] neurology starting at approximately 2029., No callback. Recontacted at 2144. Spoke with Dr. Cevallos, neurology at [facility]. Do not feel that this represents a MS flare. We will hold steroids at this time. No headache. No visual changes. No focal neurological deficits. Patient states she feels much better after pain meds and IV fluids. She requests to go home at this time. Patient will follow-up with her neurologist tomorrow. Patient counseled regarding signs and symptoms for which I believe and urgent re-evaluation would be necessary. Patient with good understanding of and agreement to plan and is comfortable going home at this time This document was made in part using voice recognition software. While efforts are made to proofread this document, sound alike and grammatical errors may occur. Departure - Departure Disposition: 01 Home, Self Care Clinical Impression: Medication side effect Condition: Good Instructions: ED Drug React Adverse Other Follow-Up: Darling Jacobsen ARNP, SENIOR HR MANAGER-C [Primary Care Provider] - ROGELIO URIOSTEGUI MD [Physician No Access] - Tomorrow Comments: Go home and rest. Return if you worsen. Follow-up with your neurologist for further care. This appears to likely be a reaction to the IVIG.
[2020-08-10] MEDS ORDERED: KETOROLAC 30 MG/ML VIAL IVP STA (20:06)
[2020-08-10 20:22] LABS: BASOPHILS % (AUTO) 0.5 %; EOSINOPHILS # (AUTO) 0.2 10^3/uL (0.0-0.7); EOSINOPHILS % (AUTO) 3.1 %; HGB - HEMOGLOBIN 12.7 g/dL (12.0-16.0); LYMPHOCYTES # (AUTO) 2.3 10^3/uL (1.5-3.5); MEAN CORPUSCULAR HEMOGLOBIN 29.4 pg (27.0-31.0); MEAN CORPUSCULAR HGB CONC 32.7 g/dL (32.0-36.0); MEAN CORPUSCULAR VOLUME 89.8 fL (81.0-99.0); MEAN PLATELET VOLUME 10.3 fL (7.9-10.8); MONOCYTES # (AUTO) 0.4 10^3/uL (0.0-1.0); NEUTROPHILS # (AUTO) 2.5 10^3/uL (1.5-6.6); PLT - PLATELET COUNT 208 10^3/uL (130-450); RED BLOOD COUNT 4.32 10^6/uL (4.20-5.40); RED CELL DISTRIBUTION WIDTH 11.9 % (12.0-15.0); WHITE BLOOD COUNT 5.5 x10^3/uL (4.8-10.8)
[2020-08-10 20:27] LABS: BILIRUBIN,URINE NEGATIVE (NEGATIVE); CLARITY,URINE CLEAR (CLEAR); GLUCOSE, URINE (UA) NEGATIVE (NEGATIVE); KETONES,URINE (UA) NEGATIVE (NEGATIVE); LEUKOCYTE ESTERASE, URINE NEGATIVE (NEGATIVE); NITRITE,URINE NEGATIVE (NEGATIVE); OCCULT BLOOD,URINE NEGATIVE (NEGATIVE); PROTEIN,URINE NEGATIVE (NEGATIVE); UROBILINOGEN,URINE 0.2 (NORMAL) E.U./dL (NORMAL)
[2020-08-10 20:28] LABS: HCG UR QUAL NEGATIVE
[2020-08-10 20:33] LABS: ALBUMIN 3.6 g/dL (3.2-5.5); ALBUMIN/GLOBULIN RATIO 0.9 (1.0-2.2); BILIRUBIN,TOTAL 0.4 mg/dL (0.2-1.0); CALCIUM 8.8 mg/dL (8.5-10.3); CREATININE 0.6 mg/dL (0.4-1.0); TOTAL PROTEIN 7.7 g/dL (6.7-8.2)
[2020-08-10] MEDS ORDERED: MORPHINE 2 MG/ML CARPUJECT IVP STA (20:46)
[2020-08-10 21:02] VITALS: BP 101/66
== END 2020-08-10 22:00 | disposition home or self-care (01) ==
LOC: ED 18:05
DX: R53.1 Weakness (principal); T50.Z15A Adverse effect of immunoglobulin, initial encounter; G35 Multiple sclerosis
CPT/HCPCS: 36415; 80053; 81001; 81003; 81025; 83690; 85025; 87086; 96361; 96374; 96375; 99284

== ENCOUNTER 2020-09-02 07:00 | Outpatient (CLI) | payer MEDICAID ==
[2020-09-02 13:13] LABS: BASOPHILS % (AUTO) 0.3 %; EOSINOPHILS # (AUTO) 0.2 10^3/uL (0.0-0.7); EOSINOPHILS % (AUTO) 2.8 %; HGB - HEMOGLOBIN 12.8 g/dL (12.0-16.0); LYMPHOCYTES # (AUTO) 2.6 10^3/uL (1.5-3.5); LYMPHOCYTES % (AUTO) 38.6 %; MEAN CORPUSCULAR HEMOGLOBIN 29.8 pg (27.0-31.0); MEAN CORPUSCULAR HGB CONC 33.5 g/dL (32.0-36.0); MEAN PLATELET VOLUME 9.8 fL (7.9-10.8); MONOCYTES # (AUTO) 0.4 10^3/uL (0.0-1.0); MONOCYTES % (AUTO) 5.6 %; NEUTROPHILS # (AUTO) 3.5 10^3/uL (1.5-6.6); NEUTROPHILS % (AUTO) 52.4 %; PLT - PLATELET COUNT 230 10^3/uL (130-450); RED BLOOD COUNT 4.29 10^6/uL (4.20-5.40); RED CELL DISTRIBUTION WIDTH 12.2 % (12.0-15.0); WHITE BLOOD COUNT 6.7 x10^3/uL (4.8-10.8)
[2020-09-02 13:19] LABS: ALBUMIN 3.9 g/dL (3.2-5.5); ALBUMIN/GLOBULIN RATIO 1.1 (1.0-2.2); BILIRUBIN,TOTAL 0.5 mg/dL (0.2-1.0); CALCIUM 9.3 mg/dL (8.5-10.3); CREATININE 0.6 mg/dL (0.4-1.0); TOTAL PROTEIN 7.5 g/dL (6.7-8.2)
== END 2020-09-02 23:59 | disposition home or self-care (01) ==
LOC: LAB.R 07:00
PROVIDERS: ATTEND Psychiatry & Neurology Neurology
DX: G70.00 Myasthenia gravis without (acute) exacerbation (principal)
CPT/HCPCS: 80053; 85025

== ENCOUNTER 2020-10-13 12:21 | Outpatient (CLI) | payer MEDICAID | END 2020-10-13 12:22 | disposition home or self-care (01) | LOC: SC 12:21 | PROVIDERS: ATTEND Nurse Practitioner Family | DX: G47.10 Hypersomnia, unspecified (principal); R00.0 Tachycardia, unspecified; G47.00 Insomnia, unspecified; G47.8 Other sleep disorders; R53.83 Other fatigue; E66.3 Overweight; Z68.29 Body mass index [BMI] 29.0-29.9, adult | CPT/HCPCS: 95806 ==

== ENCOUNTER 2020-10-20 16:02 | Outpatient (CLI) | payer MEDICAID ==
--- NOTE | 2020-10-20 15:42 | SLEEP CARE CONSULTATION ---
Information from patient questionnaire entered by Arianna Magallanes. I have reviewed and concur with the information entered by Arianna Magallanes. This document represents the service I personally performed and the decisions made by , Harriet North ARNP. History of Present Illness Service Date and Time: 10/20/2020 1540 Initial [place] Sleepiness Scale score: 16 (in 2020) Current [place] Sleepiness Scale score: 13 Additional HPI information: MOO SALINAS returns via Telehealth visit for follow up and results of the recently performed home sleep study. The patient was informed of the following findings: Patient did not have significant sleep disordered breathing with an AHI of 4.0 and a raquel oxygen saturation of 91%. She did have an elevated supine AHI of 7.2. She was also noted to have tachycardia. I explained the pathophysiology behind obstructive sleep apnea. Patient does not have sleep apnea and was advised how weight gain could increase the risk of developing sleep apnea in the future. I strongly encouraged the patient to lose weight. Patient does not have significant sleep disordered breathing but has elevated AHI in supine position so advised positional therapy. Methods to achieve positional management therapy were discussed; such as, positioning with pillows, wearing a T-shirt with tennis balls sewn into the back. Patient has light to moderate snoring. Snoring can be reduced by weight loss. Weight loss is best achieved with diet consult. Patient instructed to contact PCP for referral. Snoring can also be treated with an oral appliance from a dentist. Advised to check insurance coverage. In addition, an ENT evaluation can be do to see if other treatment is indicated. Patient counseled not drink alcohol less than 4 hours before bedtime as it can increase snoring and apnea. Patient was cautioned about risks of drowsy driving until sleepiness symptoms resolve. Sleep Study - Results Type of Sleep Study: Home sleep study Prior sleep studies: No Polysomnography/Home Sleep Study results: Physician Impression: The quality of the study is good. The length of the study is adequate (> 240 minutes). Please also see the tabulated and graphic data. 1. No significant sleep-disordered breathing, with an AHI of 4.0/hr and raquel SaO2 of 91%. During the study, the patient had 21 apneas (21 obstructive, 0 central, 0 mixed) and 4 hypopneas. The longest episode lasted 44.0 seconds. The few respiratory events occurred almost exclusively during supine sleep (supine AHI was 7.2 and non-supine, 1.68). 2. Tachycardia, with maximum recoded heart rate of 124 beats per minute. Physical Exam Height: 5 ft 7 in Impression and Plan 1. Snoring but no significant sleep disordered breathing. Patient advised that often weight loss will reduce snoring as well as apnea risk. An oral appliance can also be used for snoring. This would require a dental consultation. Patient cautioned not to use other online appliances as can cause bite issues. A list of accredited dentists in area and one local dentist who makes oral appliances given. Patient is advised to check if insurance will cover. An ENT consult can also be helpful to determine if any other treatment is an option. Patient does have an elevated supine AHI and was advised to avoid sleeping supine. She states she is normally a side sleeper and does not like sleeping on her back. 2.Tachycardia, unspecified. Patient has a history of dysautonomia and myasthenia gravis which causes her to have tachycardia. She is currently being evaluated for myasthenia gravis. * Avoid supine sleep * Attempt to lose weight and maintain a healthy weight * Continue follow up for tachycardia connected to dysautonomia * Avoid alcohol consumption near bedtime * The patient is cautioned about driving until sleepiness is completely resolved. * Return as needed. Counseling Topics: Weight loss health impact Visit Type: Telehealth Phone Video Type: [place] Patient Location: Home Location of Provider: Office Patient agrees and consents to this telehealth visit type: Yes Patient agrees to have their insurance billed: Yes Time Spent with Patient (minutes): 15 Provider Statement: I spent 100% of the Telehealth Phone Call with the patient with greater than 50% spent counseling the patient and coordination of care.
== END 2020-10-20 16:03 | disposition home or self-care (01) ==
LOC: SC 16:02
PROVIDERS: ATTEND Nurse Practitioner Family
DX: R06.83 Snoring (principal); R00.0 Tachycardia, unspecified; G47.10 Hypersomnia, unspecified; R53.83 Other fatigue; G47.00 Insomnia, unspecified

== ENCOUNTER 2020-11-03 04:21 | Emergency (ER) | payer MEDICAID ==
[2020-11-03] MEDS ORDERED: SODIUM CHLORIDE 0.9% 1,000 ML IV STA (04:48)
--- NOTE | 2020-11-03 04:53 | ED Physician Documentation ---
History of Present Illness - Stated complaint Stated Complaint: NAUSEA AND VOMITING - Chief complaint Chief Complaint: Abd Pain - History obtained from History obtained from: Patient - Additonal information Additional information: Patient comes emergency department for chief complaint of vomiting for the last 3 days. She states this is very much in line with her recurrent symptoms, and that nothing is different this time. Patient denies any fevers or chills. No abdominal pain that is unusual. She states that her saline infusions got switched around, so she has not been able to get any IV fluids in the last few days. She states that she has tried to sleep tonight by taking a total of 1 tablet of Vicodin, But this was on successful. She states she knows she just needs fluids and then she can sleep. No other complaints at this time. Patient has a longstanding history of cyclical vomiting episodes, as well as a stated history of myasthenia gravis. She has a port because of the frequency of her vomiting episodes and regularly gets saline infusions at the [facility]. Review of Systems Ten Systems: 10 systems reviewed and negative Constitutional: reports: Reviewed and negative Eyes: reports: Reviewed and negative Ears: reports: Reviewed and negative Nose: reports: Reviewed and negative Throat: reports: Reviewed and negative Cardiac: reports: Reviewed and negative Respiratory: reports: Reviewed and negative GI: reports: Nausea, Vomiting : reports: Reviewed and negative Skin: reports: Reviewed and negative Musculoskeletal: reports: Reviewed and negative Neurologic: reports: Reviewed and negative Psychiatric: reports: Reviewed and negative Endocrine: reports: Reviewed and negative Immunocompromised: reports: Reviewed and negative PD PAST MEDICAL HISTORY - Past Medical History Cardiovascular: None Respiratory: None Neuro: Migraines Endocrine/Autoimmune: None GI: None 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 : None HEENT: None Psych: None Musculoskeletal: None Derm: None Other Past Medical History: myasthenia gravis - Past Surgical History Past Surgical History: Yes Cardiovascular: Other HEENT: Tonsil/Adenoidectomy - Present Medications Home Medications: Ambulatory Orders Medication Instructions Recorded Confirmed Butalb/Acetaminophen/Caffeine 1 each PO Q8H PRN #20 capsule 11/06/19 11/03/20 [Inrkjl-Qhotvpau-Oeyr 50-325-40] Hydrocodone/Acetaminophen [[place] 1 each PO Q6H PRN #15 tablet 11/06/19 11/03/20 5-325 Tablet] Norethindrone [[place]arlign] 0.35 mg PO DAILY 11/06/19 11/03/20 Omeprazole 20 mg PO DAILY 11/06/19 11/03/20 traZODone [Desyrel] 50 mg PO ONCE 11/06/19 11/03/20 Ondansetron Odt [Zofran] 4 mg TL Q6H PRN #10 tablet 01/03/20 11/03/20 Amitriptyline [Elavil] 10 mg PO DAILY 11/03/20 11/03/20 Desvenlafaxine Succinate [Pristiq] 50 mg PO DAILY 11/03/20 11/03/20 Gabapentin [Neurontin] 600 mg PO QID 11/03/20 11/03/20 Pyridostigmine [place] [Mestinon] 60 mg PO BID 11/03/20 11/03/20 predniSONE [Deltasone] 40 mg PO DAILY 11/03/20 11/03/20 - Allergies Allergies/Adverse Reactions: Allergies Allergy/AdvReac Type Severity Reaction Status Date / Time No Known Drug Allergies Allergy Verified 11/03/20 04:38 - Social History Does the pt smoke?: No Smoking Status: Never smoker Does the pt drink ETOH?: No Does the pt have substance abuse?: No - Immunizations Immunizations are current?: Yes - POLST Patient has POLST: No PD ED PE NORMAL - Vitals Vital signs reviewed: Yes - General General: Alert and oriented X 3, No acute distress - HEENT HEENT: Atraumatic, PERRL, EOMI, Moist mucous membranes - Neck Neck: Supple, no meningeal sign - Cardiac Cardiac: RRR, No murmur - Respiratory Respiratory: Clear bilaterally - Abdomen Abdomen: Soft, Non tender, Non distended - Derm Derm: Normal color, Warm and dry, No rash - Extremities Extremities: No deformity, No edema, No calf tenderness / cord - Neuro Neuro: Alert and oriented X 3, 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, Normal speech, Other (Grossly intact) - Psych Psych: Normal mood, Normal affect Results - Vitals Vitals: Vital Signs - 24 hr 11/03/20 11/03/20 11/03/20 04:25 04:34 05:50 Temperature 36.9 C 36.9 C 36.8 C Heart Rate 111 H 83 73 Respiratory 16 20 16 Rate Blood Pressure 143/100 H 150/95 H 122/79 O2 Saturation 97 97 98 11/03/20 06:25 Temperature 36.9 C Heart Rate 82 Respiratory 16 Rate Blood Pressure 116/80 O2 Saturation 97 Oxygen O2 Source Room air PD MEDICAL DECISION MAKING - ED course Complexity details: considered differential, d/w patient ED course: Patient was given a liter point and normal saline. Given that this is a chronic condition for her and not any different than her usual episodes, I did not feel any further work-up was indicated. We have discussed home management of the symptoms, as well as the usual indications for return. Departure - Departure Disposition: 01 Home, Self Care Clinical Impression: Vomiting Qualifiers: Vomiting type: unspecified Vomiting Intractability: non-intractable Nausea presence: with nausea Qualified Code(s): R11.2 - Nausea with vomiting, unspecified Insomnia Qualifiers: Insomnia type: unspecified Qualified Code(s): G47.00 - Insomnia, unspecified Condition: Stable Instructions: ED Nausea Vomiting Discharge Date/Time: 11/03/20 06:28
[2020-11-03 06:43] VITALS: BP 116/80
== END 2020-11-03 06:28 | disposition home or self-care (01) ==
LOC: ED 04:21
DX: R11.2 Nausea with vomiting, unspecified (principal); G47.00 Insomnia, unspecified; G70.00 Myasthenia gravis without (acute) exacerbation
CPT/HCPCS: 96361; 96374; 99284

== ENCOUNTER 2021-01-08 00:22 | Emergency (ER) | payer MEDICAID ==
[2021-01-08] MEDS ORDERED: SODIUM CHLORIDE 0.9% 1,000 ML IV STA (01:04)
[2021-01-08] MEDS ORDERED: ONDANSETRON 4 MG/2 ML VIAL IVP STA (01:04)
--- NOTE | 2021-01-08 01:40 | ED Physician Documentation ---
PD HPI NVD - Stated complaint Stated Complaint: VOMITING/AB PX - Chief complaint Chief Complaint: Abd Pain - History obtained from History obtained from: Patient, Caregiver - History of Present Illness Timing - onset: Today Timing - duration: Hours Timing - details: Abrupt onset, Still present Associated symptoms: Abdominal pain Contributing factors: Other (myasthenia gravis). No: Sick contact, Bad food, Travel, Recent antibiotics, Alcohol use, Anticoagulated, Diabetes Improved by: Vomiting Worsened by: Eating Similar symptoms before: Diagnosis Recently seen: Clinic - Additonal information Additional information: 20-year-old female with a history of myasthenia gravis has a port in place and standing orders for fluid resuscitation twice per week. This evening she has developed nausea and has been unable to keep her medications down. She is due to get hydration tomorrow. She is brought here by her caregiver who is requesting we administered Zofran. The caregiver indicates the patient has Zofran at home attempted to use this but was unable to hold it down. 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 : None HEENT: None Psych: None Musculoskeletal: None Derm: None Other Past Medical History: myesthenia gravis - Past Surgical History Past Surgical History: Yes Cardiovascular: Other HEENT: Tonsil/Adenoidectomy - Present Medications Home Medications: Ambulatory Orders Medication Instructions Recorded Confirmed Omeprazole 20 mg PO BID 11/06/19 01/08/21 Amitriptyline [Elavil] 20 mg PO DAILY 11/03/20 01/08/21 Desvenlafaxine Succinate [Pristiq] 50 mg PO DAILY 11/03/20 01/08/21 Gabapentin [Neurontin] 900 mg PO TID 11/03/20 01/08/21 Pyridostigmine [place] [Mestinon] 30 mg PO BID 11/03/20 01/08/21 Propranolol [Inderal] 20 mg PO DAILY 01/08/21 01/08/21 Propranolol [Inderal] 40 mg PO DAILY PM 01/08/21 01/08/21 predniSONE [Prednisone] 50 mg PO DAILY 01/08/21 01/08/21 - Allergies Allergies/Adverse Reactions: Allergies Allergy/AdvReac Type Severity Reaction Status Date / Time No Known Drug Allergies Allergy Verified 01/08/21 00:41 - Social History Does the pt smoke?: No Smoking Status: Never smoker Does the pt drink ETOH?: No Does the pt have substance abuse?: No - Immunizations Immunizations are current?: Yes - POLST Patient has POLST: No PD ED PE NORMAL - Vitals Vital signs reviewed: Yes (Hypertensive) - General General: No acute distress, Well developed/nourished - HEENT HEENT: Atraumatic, PERRL, EOMI - Neck Neck: Supple, no meningeal sign, No bony TTP - Cardiac Cardiac: No murmur, Other (Tachycardic to 110) - Respiratory Respiratory: No respiratory distress - Abdomen Abdomen: Soft, Non tender - Back Back: No CVA TTP, No spinal TTP - Derm Derm: Normal color, Warm and dry, No rash - Extremities Extremities: No deformity, No edema - Neuro Neuro: Alert and oriented X 3, 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, No motor deficit, No sensory deficit, Normal speech Eye Opening: Spontaneous Motor: Obeys Commands Verbal: Oriented GCS Score: 15 - Psych Psych: Normal mood, Normal affect Results - Vitals Vitals: Vital Signs - 24 hr 01/08/21 01/08/21 01/08/21 00:41 00:45 01:44 Temperature 36.7 C 36.7 C Heart Rate 110 H 110 H Respiratory 18 18 17 Rate Blood Pressure 120/86 H 120/86 H 112/83 H O2 Saturation 99 99 99 01/08/21 02:43 Temperature Heart Rate 74 Respiratory 16 Rate Blood Pressure 139/91 H O2 Saturation 99 Oxygen O2 Source Room air - Labs Labs: Laboratory Tests 01/08/21 01/08/21 01:30 01:30 WBC 14.8 H RBC 4.78 Hgb 13.8 Hct 43.1 MCV 90.2 MCH 28.9 MCHC 32.0 RDW 13.3 Plt Count 261 MPV 9.6 Neut # (Auto) 8.9 H Lymph # (Auto) 4.2 H [place] # (Auto) 1.0 Eos # (Auto) 0.1 Baso # (Auto) 0.1 Absolute Nucleated RBC 0.00 Nucleated RBC % 0.0 Sodium 137 Potassium 3.0 L Chloride 101 Carbon Dioxide 23 Anion Gap 13.0 BUN 14 Creatinine 0.6 Estimated GFR (MDRD) 126 Glucose 84 Calcium 8.3 L Total Bilirubin 0.4 AST 19 ALT 40 Alkaline Phosphatase 46 Total Protein 6.3 L Albumin 3.9 Globulin 2.4 Albumin/Globulin Ratio 1.6 Lipase 29 PD MEDICAL DECISION MAKING - ED course Complexity details: reviewed results, re-evaluated patient, considered differential, d/w patient, d/w family ED course: 20-year-old female with a history of myasthenia gravis is unable to take her medications this evening secondary to nausea and vomiting. She is given Zofran intravenously as well as saline and she is able to take her medications. She will follow up with the [facility] [place] for further hydration as needed. Departure - Departure Disposition: 01 Home, Self Care Clinical Impression: Dehydration Vomiting Qualifiers: Vomiting type: unspecified Vomiting Intractability: non-intractable Nausea presence: with nausea Qualified Code(s): R11.2 - Nausea with vomiting, unspecified Condition: Stable Instructions: ED Dehydration, ED Diet Vomiting Diarrhea, ED Nausea Vomiting Follow-Up: Darling Jacobsen ARNP, [facility] [employer]P[facility] [Credentialed Staff Provider] - Discharge Date/Time: 01/08/21 02:50
[2021-01-08 01:48] LABS: BASOPHILS # (AUTO) 0.1 10^3/uL (0.0-0.1); BASOPHILS % (AUTO) 0.4 %; EOSINOPHILS # (AUTO) 0.1 10^3/uL (0.0-0.7); EOSINOPHILS % (AUTO) 0.6 %; HCT - HEMATOCRIT 43.1 % (37.0-47.0); HGB - HEMOGLOBIN 13.8 g/dL (12.0-16.0); LYMPHOCYTES # (AUTO) 4.2 10^3/uL (1.5-3.5); LYMPHOCYTES % (AUTO) 28.4 %; MEAN CORPUSCULAR HEMOGLOBIN 28.9 pg (27.0-31.0); MEAN CORPUSCULAR VOLUME 90.2 fL (81.0-99.0); MEAN PLATELET VOLUME 9.6 fL (7.9-10.8); MONOCYTES % (AUTO) 6.8 %; NEUTROPHILS # (AUTO) 8.9 10^3/uL (1.5-6.6); NEUTROPHILS % (AUTO) 60.4 %; PLT - PLATELET COUNT 261 10^3/uL (130-450); RED BLOOD COUNT 4.78 10^6/uL (4.20-5.40); RED CELL DISTRIBUTION WIDTH 13.3 % (12.0-15.0); WHITE BLOOD COUNT 14.8 x10^3/uL (4.8-10.8)
[2021-01-08 02:01] LABS: ALBUMIN 3.9 g/dL (3.2-5.5); ALBUMIN/GLOBULIN RATIO 1.6 (1.0-2.2); BILIRUBIN,TOTAL 0.4 mg/dL (0.2-1.0); CALCIUM 8.3 mg/dL (8.5-10.3); CREATININE 0.6 mg/dL (0.4-1.0); TOTAL PROTEIN 6.3 g/dL (6.7-8.2)
[2021-01-08] MEDS ORDERED: LOPERAMIDE 2 MG CAPSULE PO STA (02:25)
[2021-01-08 02:45] VITALS: BP 139/91
== END 2021-01-08 02:50 | disposition home or self-care (01) ==
LOC: ED 00:22
DX: E86.0 Dehydration (principal); R11.2 Nausea with vomiting, unspecified; G70.00 Myasthenia gravis without (acute) exacerbation
CPT/HCPCS: 36415; 80053; 83690; 85025; 96361; 96374; 96375; 99284; 99285; A9270

== ENCOUNTER 2021-05-27 06:34 | Emergency (ER) | payer MEDICAID ==
[2021-05-27] MEDS ORDERED: SODIUM CHLORIDE 0.9% 1,000 ML IV STA (06:55)
[2021-05-27] MEDS ORDERED: ONDANSETRON 4 MG/2 ML VIAL IVP STA (06:55)
--- NOTE | 2021-05-27 07:17 | ED Physician Documentation ---
History of Present Illness - Stated complaint Stated Complaint: VOMITING/STOMACH PX - Chief complaint Chief Complaint: Abd Pain - History obtained from History obtained from: Patient - Additonal information Additional information: Patient comes emergency department chief complaint of nausea and vomiting since yesterday. Patient also has been having some diarrhea. She states that she has been having these symptoms on and off for some time now and is scheduled to see a supervisor network control operators in 2 weeks to address it. She has a port for her myasthenia gravis and actually took some IV ondansetron at home, but this did not help. Patient states this is unusual because normally the IV Zofran is helpful. Patient states she has had a feeling of being hot and cold but has not had any measured temperatures. No dysuria or back pain. No shortness of breath, chest pain, or cough. She has pain in her epigastric area. She states that symptoms are consistent with prior episodes. No other complaints at this time. Review of Systems Ten Systems: 10 systems reviewed and negative Constitutional: reports: Reviewed and negative Eyes: reports: Reviewed and negative Ears: reports: Reviewed and negative Nose: reports: Reviewed and negative Throat: reports: Reviewed and negative Cardiac: reports: Reviewed and negative Respiratory: reports: Reviewed and negative GI: reports: Abdominal Pain, Nausea, Vomiting, Diarrhea : reports: Reviewed and negative Skin: reports: Reviewed and negative Musculoskeletal: reports: Reviewed and negative Neurologic: reports: Reviewed and negative Psychiatric: reports: Reviewed and negative Endocrine: reports: Reviewed and negative Immunocompromised: reports: Reviewed and negative PD PAST MEDICAL HISTORY - Past Medical History Past Medical History: Yes Cardiovascular: None Respiratory: None Neuro: Migraines Endocrine/Autoimmune: None GI: None 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 - Past Surgical History Past Surgical History: Yes Cardiovascular: Other HEENT: Tonsil/Adenoidectomy - Present Medications Home Medications: Ambulatory Orders Medication Instructions Recorded Confirmed Omeprazole 20 mg PO BID 11/06/19 05/27/21 Amitriptyline [Elavil] 20 mg PO DAILY 11/03/20 05/27/21 Desvenlafaxine Succinate [Pristiq] 50 mg PO DAILY 11/03/20 05/27/21 Gabapentin [Neurontin] 900 mg PO TID 11/03/20 05/27/21 Pyridostigmine [place] [Mestinon] 30 mg PO BID 11/03/20 05/27/21 Propranolol [Inderal] 20 mg PO DAILY 01/08/21 05/27/21 Propranolol [Inderal] 40 mg PO DAILY PM 01/08/21 05/27/21 predniSONE [Prednisone] 7 mg PO DAILY 01/08/21 05/27/21 - Allergies Allergies/Adverse Reactions: Allergies Allergy/AdvReac Type Severity Reaction Status Date / Time adhesive tape AdvReac Rash Verified 05/27/21 06:53 ivig AdvReac Cramps Uncoded 05/27/21 06:53 - Social History Does the pt smoke?: No Smoking Status: Never smoker Does the pt drink ETOH?: No Does the pt have substance abuse?: No - Immunizations Immunizations are current?: Yes - POLST Patient has POLST: No PD ED PE NORMAL - Vitals Vital signs reviewed: Yes - General General: Alert and oriented X 3, No acute distress - HEENT HEENT: Atraumatic, PERRL, EOMI, Moist mucous membranes - Neck Neck: Supple, no meningeal sign - Cardiac Cardiac: RRR, No murmur - Respiratory Respiratory: No respiratory distress, Clear bilaterally - Abdomen Abdomen: Soft, Non distended, Other (Mild tenderness epigastric region, no rebound or guarding) - Derm Derm: Normal color, Warm and dry, No rash - Extremities Extremities: No deformity, No edema, No calf tenderness / cord - Neuro Neuro: Alert and oriented X 3, corset maker 2-12 intact, Normal speech - Psych Psych: Normal mood, Normal affect Results - Vitals Vitals: Vital Signs - 24 hr 05/27/21 05/27/21 06:42 08:48 Temperature 36.7 C Heart Rate 133 H 72 Respiratory 16 16 Rate Blood Pressure 145/90 H 131/92 H O2 Saturation 99 95 Oxygen O2 Source Room air - Labs Labs: Laboratory Tests 05/27/21 05/27/21 07:55 07:55 WBC 7.6 RBC 4.97 Hgb 14.4 Hct 43.5 MCV 87.5 MCH 29.0 MCHC 33.1 RDW 12.5 Plt Count 335 MPV 9.7 Neut # (Auto) 5.7 Lymph # (Auto) 1.4 L [place] # (Auto) 0.4 Eos # (Auto) 0.0 Baso # (Auto) 0.0 Absolute Nucleated RBC 0.00 Nucleated RBC % 0.0 Sodium 138 Potassium 3.8 Chloride 102 Carbon Dioxide 24 Anion Gap 12.0 BUN 11 Creatinine 0.7 Estimated GFR (MDRD) 106 Glucose 105 H Calcium 9.6 Total Bilirubin 1.0 AST 34 ALT 31 Alkaline Phosphatase 70 Total Protein 8.2 Albumin 4.6 Globulin 3.6 Albumin/Globulin Ratio 1.3 Lipase 32 PD MEDICAL DECISION MAKING - ED course Complexity details: reviewed results, re-evaluated patient, considered differential, d/w patient ED course: The patient was treated with IV fluid, droperidol, and Benadryl, and worked up with laboratory studies. Labs were unremarkable. The patient was found to be feeling better and stable for discharge home. We have discussed home management of the symptoms, as well the usual indications for return. Departure - Departure Disposition: 01 Home, Self Care Clinical Impression: Vomiting Qualifiers: Vomiting type: bilious vomiting Nausea presence: with nausea Qualified Code(s): R11.14 - Bilious vomiting Condition: Stable Instructions: ED Nausea Vomiting Comments: Please take your home medications as usual. You may want to take them a little more spread out since you have been nauseated this morning. Please continue to follow-up with your doctors regarding your ongoing issues with nausea. Discharge Date/Time: 05/27/21 09:59
[2021-05-27] MEDS ORDERED: DROPERIDOL 5 MG/2 ML VIAL IVP STA (07:22)
[2021-05-27] MEDS ORDERED: diphenhydrAMINE INJ 50 MG/ML VIAL IVP STA (07:22)
[2021-05-27 08:04] LABS: BASOPHILS % (AUTO) 0.3 %; EOSINOPHILS % (AUTO) 0.5 %; HCT - HEMATOCRIT 43.5 % (37.0-47.0); HGB - HEMOGLOBIN 14.4 g/dL (12.0-16.0); LYMPHOCYTES # (AUTO) 1.4 10^3/uL (1.5-3.5); LYMPHOCYTES % (AUTO) 18.3 %; MEAN CORPUSCULAR HGB CONC 33.1 g/dL (32.0-36.0); MEAN CORPUSCULAR VOLUME 87.5 fL (81.0-99.0); MEAN PLATELET VOLUME 9.7 fL (7.9-10.8); MONOCYTES # (AUTO) 0.4 10^3/uL (0.0-1.0); MONOCYTES % (AUTO) 5.8 %; NEUTROPHILS # (AUTO) 5.7 10^3/uL (1.5-6.6); NEUTROPHILS % (AUTO) 74.8 %; PLT - PLATELET COUNT 335 10^3/uL (130-450); RED BLOOD COUNT 4.97 10^6/uL (4.20-5.40); RED CELL DISTRIBUTION WIDTH 12.5 % (12.0-15.0); WHITE BLOOD COUNT 7.6 x10^3/uL (4.8-10.8)
[2021-05-27 08:27] LABS: ALBUMIN 4.6 g/dL (3.2-5.5); ALBUMIN/GLOBULIN RATIO 1.3 (1.0-2.2); CALCIUM 9.6 mg/dL (8.5-10.3); CREATININE 0.7 mg/dL (0.4-1.0); POTASSIUM 3.8 mmol/L (3.5-5.0); TOTAL PROTEIN 8.2 g/dL (6.7-8.2)
[2021-05-27] MEDS ORDERED: HYDROmorphone 1 MG/ML CARPUJECT IVP STA (08:36)
[2021-05-27 08:48] VITALS: BP 131/92
== END 2021-05-27 09:59 | disposition home or self-care (01) ==
LOC: ED 06:34
DX: R11.14 Bilious vomiting (principal); R19.7 Diarrhea, unspecified; R10.13 Epigastric pain; G70.00 Myasthenia gravis without (acute) exacerbation
CPT/HCPCS: 36415; 80053; 83690; 85025; 96361; 96374; 96375; 99283; 99284; J1170; J1200

== ENCOUNTER 2021-05-28 00:34 | Emergency (ER) | payer MEDICAID ==
[2021-05-28] MEDS ORDERED: diphenhydrAMINE INJ 50 MG/ML VIAL IVP STA (01:40)
[2021-05-28] MEDS ORDERED: SODIUM CHLORIDE 0.9% 1,000 ML IV STA (01:41)
[2021-05-28] MEDS ORDERED: DROPERIDOL 5 MG/2 ML VIAL IVP STA (01:41)
[2021-05-28] MEDS ORDERED: METOCLOPRAMIDE 10 MG/2 ML VIAL IVP STA (01:41)
[2021-05-28] MEDS ORDERED: METOCLOPRAMIDE 10 MG TABLET PO STA (02:23)
[2021-05-28] MEDS ORDERED: DROPERIDOL 5 MG/2 ML VIAL IM STA (02:23)
[2021-05-28] MEDS ORDERED: diphenhydrAMINE INJ 50 MG/ML VIAL IM STA ×2 (02:23→02:24)
[2021-05-28] MEDS ORDERED: HYDROmorphone 1 MG/ML CARPUJECT IM STA (02:30)
[2021-05-28] MEDS ORDERED: FAMOTIDINE 20 MG TABLET PO STA (02:30)
[2021-05-28] MEDS ORDERED: HYDROmorphone 2 MG TABLET PO STA (02:31)
[2021-05-28] MEDS ORDERED: diphenhydrAMINE ELIXIR 25 MG/10 ML UDC PO STA (04:32)
[2021-05-28] MEDS ORDERED: MAG HYDROX/AL HYDROX/SIMETH 30 ML UDC PO STA (04:32)
--- NOTE | 2021-05-28 04:33 | ED Physician Documentation ---
History of Present Illness - Stated complaint Stated Complaint: ABD PX, N/V, DIARRHEA - Chief complaint Chief Complaint: Abd Pain - History obtained from History obtained from: Patient - Additonal information Additional information: 20-year-old woman with history of myasthenia gravis, cyclic vomiting syndrome, presents with persistent abdominal pain, nausea vomiting and diarrhea after being seen here yesterday. She states this is c/w her usual episodes and nothing new is happening. Patient states that she has chronic GI issues and is supposed to see a boot turner in 2 weeks. denies fever, urinary sx Review of Systems Ten Systems: 10 systems reviewed and negative Constitutional: reports: Myalgias, Fatigue. 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 HEENT: None Psych: None Musculoskeletal: None Derm: None - Past Surgical History Past Surgical History: Yes Cardiovascular: Other HEENT: Tonsil/Adenoidectomy - Present Medications Home Medications: Ambulatory Orders Medication Instructions Recorded Confirmed Omeprazole 20 mg PO BID 11/06/19 05/28/21 Amitriptyline [Elavil] 20 mg PO DAILY 11/03/20 05/28/21 Desvenlafaxine Succinate [Pristiq] 50 mg PO DAILY 11/03/20 05/28/21 Gabapentin [Neurontin] 900 mg PO TID 11/03/20 05/28/21 Pyridostigmine [place] [Mestinon] 30 mg PO BID 11/03/20 05/28/21 Propranolol [Inderal] 20 mg PO DAILY 01/08/21 05/28/21 Propranolol [Inderal] 40 mg PO DAILY PM 01/08/21 05/28/21 predniSONE [Prednisone] 7 mg PO DAILY 01/08/21 05/28/21 - Allergies Allergies/Adverse Reactions: Allergies Allergy/AdvReac Type Severity Reaction Status Date / Time adhesive tape AdvReac Rash Verified 05/27/21 06:53 ivig AdvReac Cramps Uncoded 05/27/21 06:53 - Social History Does the pt smoke?: No Smoking Status: Never smoker Does the pt drink ETOH?: No Does the pt have substance abuse?: No - Immunizations Immunizations are current?: Yes - POLST Patient has POLST: No PD ED PE NORMAL - Vitals Vital signs reviewed: Yes - General General: Alert and oriented X 3, No acute distress, Well developed/nourished - HEENT HEENT: Atraumatic, PERRL, EOMI - Neck Neck: Supple, no meningeal sign - Cardiac Cardiac: RRR - Respiratory Respiratory: No respiratory distress, Clear bilaterally - Abdomen Abdomen: Non tender, Non distended - Back Back: No CVA TTP - Derm Derm: Normal color, Warm and dry - Neuro Neuro: Alert and oriented X 3 - Psych Psych: Normal mood, Normal affect Results - Vitals Vitals: Vital Signs - 24 hr 05/28/21 05/28/21 05/28/21 00:49 01:58 04:46 Temperature 36.5 C 36.5 C 36.6 C Heart Rate 125 H 118 H 101 H Respiratory 21 21 19 Rate Blood Pressure 130/80 130/80 132/82 H O2 Saturation 99 99 99 Oxygen O2 Source Room air PD MEDICAL DECISION MAKING - ED course ED course: 20-year-old woman with cyclic vomiting syndrome presents with similar symptoms today. She is feeling a little bit better with droperidol. Will give Magic mouthwash for epigastric pain. Patient sleeping comfortably for several hours in the ED without vomiting. Return precautions given. Patient will follow up with gastroenterology as an outpatient. Departure - Departure Disposition: 01 Home, Self Care Clinical Impression: Cyclic vomiting syndrome Condition: Good Instructions: ED Nausea Vomiting Comments: You were seen in the emergency department for nausea. Please return to the emergency department if you have any new or worsening symptoms or other concerns. Follow-up with gastroenterology in 2 weeks.
[2021-05-28] MEDS: LIDOCAINE TOPICAL 4% 50 ML BOTTLE MM STA ×2 (04:38→04:43)
[2021-05-28] MEDS ORDERED: LIDOCAINE VISCOUS 2% 15 ML UDC MM STA (04:39)
[2021-05-28 05:53] VITALS: BP 131/81
== END 2021-05-28 05:51 | disposition home or self-care (01) ==
LOC: ED 00:34
DX: R11.15 Cyclical vomiting syndrome unrelated to migraine (principal); R10.13 Epigastric pain; G70.00 Myasthenia gravis without (acute) exacerbation
CPT/HCPCS: 96372; 99283; 99284; A9270; J1200

== ENCOUNTER 2021-06-18 11:49 | Outpatient (CLI) | payer MEDICAID ==
[2021-06-18] MEDS ORDERED: IOPAMIDOL-300 100 ML VIAL ONE ×2 (11:57→11:59)
[2021-06-18] MEDS ORDERED: IOPAMIDOL-300 100 ML VIAL IVP ONE (13:14)
--- NOTE | 2021-06-18 15:12 | CT Report ---
PROCEDURE: Abdomen/Pelvis W INDICATIONS: ABD PAIN CONTRAST: IV CONTRAST: Isovue 300 ml: 100 PO CONTRAST: *NO PO CONTRAST TECHNIQUE: After the administration of IV contrast, 5 mm thick sections acquired from the diaphragms to the symp hysis. 5 mm thick coronal and sagittal reformats were acquired. For radiation dose reduction, the f ollowing was used: automated exposure control, adjustment of mA and/or kV according to patient size. COMPARISON: None. FINDINGS: Image quality: Excellent. ABDOMEN: Lung bases: Lung bases are clear. Heart size is normal. Solid organs: Liver and spleen are normal in size and enhancement. Gallbladder is within normal chanel its. Biliary system is non dilated. Pancreas enhances normally. No adrenal nodules. Kidneys demon strate normal size and enhancement, without hydronephrosis. Peritoneum and bowel: Bowel loops demonstrate normal wall thickness and caliber. No free fluid or a ir. Appendix is visualized and is within normal limits. Nodes and vessels: No retroperitoneal or mesenteric adenopathy by size criteria. Aorta and inferior vena cava are normal in size. Miscellaneous: No ventral hernias. PELVIS: Genitourinary: Bladder wall thickness is normal. Uterus and left ovary are within normal limits. Th ere is suggestion of a small right ovarian cyst measures 1.6 cm in size. Miscellaneous: No inguinal hernias or adenopathy. Bones: No suspicious bony lesions. No vertebral body compression fractures. IMPRESSION: 1. No acute inflammatory process is seen in abdomen or pelvis. No finding to explain patient's sympto ms. Normal appendix. 2. Suggestion of small right ovarian cyst. Reviewed by: Eder Glover MD on 06/18/2021 3:10 PM PDT Approved by: Eder Glover MD on 06/18/2021 3:10 PM PDT Station ID: [id number]
== END 2021-06-18 11:50 | disposition home or self-care (01) ==
LOC: DI 11:49
PROVIDERS: ATTEND Internal Medicine
DX: R10.9 Unspecified abdominal pain (principal); R93.89 Abnormal findings on diagnostic imaging of other specified body structures
CPT/HCPCS: 74177; Q9967

== ENCOUNTER 2021-08-28 16:04 | Outpatient (CLI) | payer MEDICAID | END 2021-08-28 16:05 | disposition home or self-care (01) | LOC: COV 16:04 | PROVIDERS: ATTEND Internal Medicine Gastroenterology | DX: Z01.812 Encounter for preprocedural laboratory examination (principal); Z20.822 Contact with and (suspected) exposure to COVID-19 ==

== ENCOUNTER 2022-01-18 16:32 | Outpatient (CLI) | payer MEDICAID | END 2022-01-18 16:33 | disposition left against medical advice (07) | LOC: EMS 16:32 | DX: R55 Syncope and collapse (principal) ==

== ENCOUNTER 2022-05-09 23:46 | Emergency (ER) | payer MEDICAID ==
--- NOTE | 2022-05-10 00:56 | ED Physician Documentation ---
PD HPI NVD - Stated complaint Stated Complaint: Nausea, vomiting - Chief complaint Chief Complaint: Abd Pain - History obtained from History obtained from: Patient, Family - History of Present Illness Timing - onset: Yesterday Timing - details: Abrupt onset, Waxing and waning Pain level max: 0 Pain level now: 0 Associated symptoms: No: Fever, Abdominal pain Recently seen: Not recently seen - Additonal information Additional information: patient c/o nausea, vomiting, and diarrhea since midday yesterday after eating some ramen noodles. The symptoms have progressed to the point of no longer being able to tolerate PO this evening. She says she has long history of similar episodes with enough frequency that she has a port-a-cath through which she receives 2 liters NS and zofran every Tuesday to prevent dehydration. She has myasthenia gravis. Per patient's description, it sounds like a definitive cause of her symptoms has not been determined, although she says she did swallow a "camera pill" for a GI test and this demonstrated slow transit time through her small intestines (gastroparesis?) Review of Systems Constitutional: denies: Fever, Chills, Sweats Cardiac: reports: Reviewed and negative Respiratory: reports: Reviewed and negative GI: reports: Nausea, Vomiting, Diarrhea. 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 : None HEENT: None Psych: None Musculoskeletal: None Derm: None - Past Surgical History Past Surgical History: Yes Cardiovascular: Other HEENT: Tonsil/Adenoidectomy - Present Medications Home Medications: Ambulatory Orders Medication Instructions Recorded Confirmed Omeprazole 20 mg PO BID 11/06/19 05/28/21 Amitriptyline [Elavil] 20 mg PO DAILY 11/03/20 05/28/21 Desvenlafaxine Succinate [Pristiq] 50 mg PO DAILY 11/03/20 05/28/21 Gabapentin [Neurontin] 900 mg PO TID 11/03/20 05/28/21 Pyridostigmine [place] [Mestinon] 30 mg PO BID 11/03/20 05/28/21 Propranolol [Inderal] 20 mg PO DAILY 01/08/21 05/28/21 Propranolol [Inderal] 40 mg PO DAILY PM 01/08/21 05/28/21 predniSONE [Prednisone] 7 mg PO DAILY 01/08/21 05/28/21 - Allergies Allergies/Adverse Reactions: Allergies Allergy/AdvReac Type Severity Reaction Status Date / Time adhesive tape AdvReac Rash Verified 05/09/22 23:55 ivig AdvReac Cramps Uncoded 05/09/22 23:55 - Social History Does the pt smoke?: No Smoking Status: Never smoker Does the pt drink ETOH?: No Does the pt have substance abuse?: No - Immunizations Immunizations are current?: Yes - POLST Patient has POLST: No PD ED PE NORMAL - Vitals Vital signs reviewed: Yes - General General: Alert and oriented X 3, No acute distress, Well developed/nourished - HEENT HEENT: Other (tacky/pasty mucous membranes) - Cardiac Cardiac: RRR, No murmur - Respiratory Respiratory: No respiratory distress, Clear bilaterally - Abdomen Abdomen: Soft, Non tender, Non distended, Other (decreased bowel sounds) - Back Back: No CVA TTP Results - Vitals Vitals: Oxygen O2 Source Room air - Labs Labs: Laboratory Tests 05/10/22 05/10/22 01:50 02:17 WBC 7.2 RBC 4.67 Hgb 13.6 Hct 40.6 MCV 86.9 MCH 29.1 MCHC 33.5 RDW 12.0 Plt Count 286 MPV 9.8 Neut # (Auto) 2.9 Lymph # (Auto) 3.6 H [place] # (Auto) 0.5 Eos # (Auto) 0.2 Baso # (Auto) 0.0 Absolute Nucleated RBC 0.00 Nucleated RBC % 0.0 Sodium 138 Potassium 3.5 Chloride 104 Carbon Dioxide 26 Anion Gap 8.0 BUN 11 Creatinine 0.7 Estimated GFR (MDRD) 105 Glucose 94 Calcium 9.2 Total Bilirubin 0.6 AST 31 ALT 53 Alkaline Phosphatase 60 Total Protein 7.0 Albumin 4.1 Globulin 2.9 Albumin/Globulin Ratio 1.4 Lipase 29 PD MEDICAL DECISION MAKING - ED course Complexity details: reviewed old records, reviewed results, re-evaluated patient, considered differential, d/w patient, d/w family ED course: port is accessed through which two liters NS and 4mg zofran were given. Normal labs (CBC, ER abdominal panel). On reevaluation after the fluids and zofran, she is resting comfortably, MMM on exam, and says she feels well and is comfortable with d/c home. Results reviewed, return precautions discussed. Departure - Departure Disposition: Home, Self Care Clinical Impression: Vomiting Qualifiers: Vomiting type: unspecified Nausea presence: with nausea Qualified Code(s): R11.2 - Nausea with vomiting, unspecified Condition: Good Instructions: ED Nausea Vomiting Comments: The results of the blood tests performed tonight are normal. Further emergent testing is not indicated at this time given that you are looking and feeling better after the intravenous fluids and anti-nausea medication. Discharge Date/Time: 05/10/22 05:00
[2022-05-10] MEDS ORDERED: SODIUM CHLORIDE 0.9% 1,000 ML IV STA ×2 (00:57→01:06)
[2022-05-10] MEDS ORDERED: ONDANSETRON 4 MG/2 ML VIAL IVP STA (01:06)
[2022-05-10 02:13] LABS: ALBUMIN 4.1 g/dL (3.2-5.5); ALBUMIN/GLOBULIN RATIO 1.4 (1.0-2.2); BILIRUBIN,TOTAL 0.6 mg/dL (0.2-1.0); CALCIUM 9.2 mg/dL (8.5-10.3); CREATININE 0.7 mg/dL (0.4-1.0); POTASSIUM 3.5 mmol/L (3.5-5.0)
[2022-05-10 02:23] LABS: BASOPHILS % (AUTO) 0.4 %; EOSINOPHILS # (AUTO) 0.2 10^3/uL (0.0-0.7); EOSINOPHILS % (AUTO) 2.4 %; HCT - HEMATOCRIT 40.6 % (37.0-47.0); HGB - HEMOGLOBIN 13.6 g/dL (12.0-16.0); LYMPHOCYTES # (AUTO) 3.6 10^3/uL (1.5-3.5); LYMPHOCYTES % (AUTO) 49.2 %; MEAN CORPUSCULAR HEMOGLOBIN 29.1 pg (27.0-31.0); MEAN CORPUSCULAR HGB CONC 33.5 g/dL (32.0-36.0); MEAN CORPUSCULAR VOLUME 86.9 fL (81.0-99.0); MEAN PLATELET VOLUME 9.8 fL (7.9-10.8); MONOCYTES # (AUTO) 0.5 10^3/uL (0.0-1.0); MONOCYTES % (AUTO) 7.1 %; NEUTROPHILS # (AUTO) 2.9 10^3/uL (1.5-6.6); NEUTROPHILS % (AUTO) 40.6 %; PLT - PLATELET COUNT 286 10^3/uL (130-450); RED BLOOD COUNT 4.67 10^6/uL (4.20-5.40); WHITE BLOOD COUNT 7.2 x10^3/uL (4.8-10.8)
[2022-05-10 05:04] VITALS: BP 118/66
== END 2022-05-10 05:00 | disposition home or self-care (01) ==
LOC: ED 23:46
DX: R11.2 Nausea with vomiting, unspecified (principal)
CPT/HCPCS: 36415; 80053; 83690; 85025; 96374; 96375; 99282

== ENCOUNTER 2022-06-04 13:22 | Outpatient (CLI) | payer MEDICAID | END 2022-06-04 13:23 | disposition home or self-care (01) | LOC: RT 13:22 | PROVIDERS: ATTEND Internal Medicine Gastroenterology | DX: R10.9 Unspecified abdominal pain (principal); G89.29 Other chronic pain | CPT/HCPCS: 93005 ==

== ENCOUNTER 2022-07-01 20:29 | Emergency (ER) | payer MEDICAID ==
[2022-07-01] MEDS ORDERED: SODIUM CHLORIDE 0.9% 1,000 ML IV STA ×2 (20:41→21:10)
[2022-07-01] MEDS ORDERED: ONDANSETRON 4 MG/2 ML VIAL IVP STA (20:41)
--- NOTE | 2022-07-01 21:15 | ED Physician Documentation ---
History of Present Illness - Stated complaint Stated Complaint: NAUSEA,VOMITING - Chief complaint Chief Complaint: Abd Pain - Additonal information Additional information: 21-year-old female presents emergency department for evaluation of uncontrolled nausea and vomiting. She has a history of myasthenia gravis as well as POTS syndrome. She goes to an infusion center each week for saline and Ultimiris a monoclonal antibody to treat her myasthenia gravis. She has found this very helpful. Over the last 2 days she has had uncontrolled vomiting. She is taken her antiemetics at home without relief thus she presents here. She has had no fevers. Denies abdominal pain dysuria urgency or frequency. She thinks her symptoms were exacerbated as she stayed with her boyfriend in [place] and his apartment was very hot without air conditioning. No pertinent past surgical history. Denies possibility of . Review of Systems Constitutional: denies: Fever, Chills Nose: reports: Reviewed and negative Throat: reports: Reviewed and negative Cardiac: reports: Reviewed and negative Respiratory: reports: Reviewed and negative GI: reports: Nausea, Vomiting. 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 : None HEENT: None Psych: None Musculoskeletal: None Derm: None - Past Surgical History Past Surgical History: Yes Cardiovascular: Other HEENT: Tonsil/Adenoidectomy - Present Medications Home Medications: Ambulatory Orders Medication Instructions Recorded Confirmed Omeprazole 20 mg PO BID 11/06/19 05/28/21 Amitriptyline [Elavil] 20 mg PO DAILY 11/03/20 05/28/21 Desvenlafaxine Succinate [Pristiq] 50 mg PO DAILY 11/03/20 05/28/21 Gabapentin [Neurontin] 900 mg PO TID 11/03/20 05/28/21 Pyridostigmine [place] [Mestinon] 30 mg PO BID 11/03/20 05/28/21 Propranolol [Inderal] 20 mg PO DAILY 01/08/21 05/28/21 Propranolol [Inderal] 40 mg PO DAILY PM 01/08/21 05/28/21 predniSONE [Prednisone] 7 mg PO DAILY 01/08/21 05/28/21 - Allergies Allergies/Adverse Reactions: Allergies Allergy/AdvReac Type Severity Reaction Status Date / Time adhesive tape AdvReac Rash Verified 07/01/22 20:48 ivig AdvReac Cramps Uncoded 07/01/22 20:48 - Social History Does the pt smoke?: No Smoking Status: Never smoker Does the pt drink ETOH?: No Does the pt have substance abuse?: No - Immunizations Immunizations are current?: Yes - POLST Patient has POLST: No PD ED PE NORMAL - General General: Alert and oriented X 3, No acute distress, Well developed/nourished - HEENT HEENT: Atraumatic, Moist mucous membranes - Neck Neck: Supple, no meningeal sign, No adenopathy - Cardiac Cardiac: RRR, No murmur - Respiratory Respiratory: No respiratory distress, Clear bilaterally - Abdomen Abdomen: Normal bowel sounds, Soft, Non tender - Derm Derm: Normal color, Warm and dry, No rash - Extremities Extremities: No deformity, No tenderness to palpate, Normal ROM s pain, No edema - Neuro Neuro: Alert and oriented X 3, 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 Eye Opening: Spontaneous Motor: Obeys Commands Verbal: Oriented GCS Score: 15 Results - Vitals Vitals: Vital Signs - 24 hr 07/01/22 07/01/22 20:40 21:29 Temperature 36.8 C Heart Rate 142 H 110 H Respiratory 18 20 Rate Blood Pressure 144/79 H 129/100 H O2 Saturation 99 100 Oxygen O2 Source Room air - Labs Labs: Laboratory Tests 07/01/22 07/01/22 07/01/22 20:45 21:23 21:23 WBC 8.4 RBC 4.26 Hgb 12.7 Hct 37.6 MCV 88.3 MCH 29.8 MCHC 33.8 RDW 12.2 Plt Count 246 MPV 10.4 Neut # (Auto) 4.6 Lymph # (Auto) 2.9 [place] # (Auto) 0.7 Eos # (Auto) 0.2 Baso # (Auto) 0.0 Absolute Nucleated RBC 0.00 Nucleated RBC % 0.0 Sodium 140 Potassium 3.1 L Chloride 104 Carbon Dioxide 28 Anion Gap 8.0 BUN 7 Creatinine 0.6 Estimated GFR (MDRD) 125 Glucose 102 H Calcium 9.1 Total Bilirubin 0.3 AST 36 ALT 107 H Alkaline Phosphatase 56 Total Protein 6.6 L Albumin 3.9 Globulin 2.7 Albumin/Globulin Ratio 1.4 Lipase 35 Urine Color YELLOW Urine Clarity CLEAR Urine pH 7.0 Ur Specific [place] 1.020 Urine Protein NEGATIVE Urine Glucose (UA) NEGATIVE Urine Ketones NEGATIVE Urine Occult Blood NEGATIVE Urine Nitrite NEGATIVE Urine Bilirubin NEGATIVE Urine Urobilinogen 0.2 (NORMAL) Ur Leukocyte Esterase NEGATIVE Ur Microscopic Review NOT INDICATED Urine Culture Comments NOT INDICATED Urine HCG, Qual NEGATIVE PD MEDICAL DECISION MAKING - ED course Complexity details: reviewed results, re-evaluated patient, considered differential, d/w patient ED course: 21-year-old female presents emergency department for evaluation of 2 days uncontrolled nausea and vomiting. This follows heat exposure in [place] with recently high temperatures and no air conditioning. She does have a history of myasthenia gravis for which she gets weekly monoclonal antibody infusions as well as POTS syndrome for which she takes weekly saline infusions. On presentation to the emergency department she appeared well though was very tachycardic at 145. I initially repleted her with 2 L of saline following this she is markedly improved with resting heart rate of just about 103. Nausea and vomiting also seems resolved. CBC showed no acute worrisome abnormalities. Her electrolytes were consistent with acute vomiting and showed mild hypokalemia. She was repleted with 40 potassium here in the ER. On repeat evaluation she is improved now tolerating sips of clear liquids and will be discharged home once the IV fluid infusions it are completed. Urgent return precautions were discussed. Departure - Departure Disposition: 01 Home, Self Care Clinical Impression: History of myasthenia gravis, POTS (postural orthostatic tachycardia syndrome), Hypokalemia Nausea and vomiting Qualifiers: Vomiting type: unspecified Qualified Code(s): R11.2 - Nausea with vomiting, unspecified Comments: Sabrina nguyen were een today in the emergency department for uncontrolled nausea and vomiting. This may have been due to excessive heat exposure in [place]. You do however have a history of myasthenia gravis and POTS. Here in the emergency department we gave you 2 L of IV fluids. This is markedly improved your heart rate as well as your nausea and vomiting. Your potassium was also a little bit low this is due to the vomiting but we gave you some oral potassium to supplement. You can continue follow-up at the infusion centers as you already would for your weekly saline and monoclonal antibodies. Return to the emergency department if you have worsening symptoms, uncontrolled vomiting or fevers.
[2022-07-01 21:19] LABS: BILIRUBIN,URINE NEGATIVE (NEGATIVE); GLUCOSE, URINE (UA) NEGATIVE (NEGATIVE); KETONES,URINE (UA) NEGATIVE (NEGATIVE); LEUKOCYTE ESTERASE, URINE NEGATIVE (NEGATIVE); NITRITE,URINE NEGATIVE (NEGATIVE); OCCULT BLOOD,URINE NEGATIVE (NEGATIVE); PROTEIN,URINE NEGATIVE (NEGATIVE); UROBILINOGEN,URINE 0.2 (NORMAL) E.U./dL (NORMAL)
[2022-07-01 21:21] LABS: CLARITY,URINE CLEAR (CLEAR); HCG UR QUAL NEGATIVE
[2022-07-01 21:28] LABS: BASOPHILS % (AUTO) 0.4 %; EOSINOPHILS # (AUTO) 0.2 10^3/uL (0.0-0.7); EOSINOPHILS % (AUTO) 2.4 %; HCT - HEMATOCRIT 37.6 % (37.0-47.0); HGB - HEMOGLOBIN 12.7 g/dL (12.0-16.0); LYMPHOCYTES # (AUTO) 2.9 10^3/uL (1.5-3.5); LYMPHOCYTES % (AUTO) 34.1 %; MEAN CORPUSCULAR HEMOGLOBIN 29.8 pg (27.0-31.0); MEAN CORPUSCULAR HGB CONC 33.8 g/dL (32.0-36.0); MEAN CORPUSCULAR VOLUME 88.3 fL (81.0-99.0); MEAN PLATELET VOLUME 10.4 fL (7.9-10.8); MONOCYTES # (AUTO) 0.7 10^3/uL (0.0-1.0); NEUTROPHILS # (AUTO) 4.6 10^3/uL (1.5-6.6); NEUTROPHILS % (AUTO) 54.9 %; PLT - PLATELET COUNT 246 10^3/uL (130-450); RED BLOOD COUNT 4.26 10^6/uL (4.20-5.40); RED CELL DISTRIBUTION WIDTH 12.2 % (12.0-15.0); WHITE BLOOD COUNT 8.4 x10^3/uL (4.8-10.8)
[2022-07-01 21:42] LABS: ALBUMIN 3.9 g/dL (3.2-5.5); ALBUMIN/GLOBULIN RATIO 1.4 (1.0-2.2); BILIRUBIN,TOTAL 0.3 mg/dL (0.2-1.0); CALCIUM 9.1 mg/dL (8.5-10.3); CREATININE 0.6 mg/dL (0.4-1.0); POTASSIUM 3.1 mmol/L (3.5-5.0); TOTAL PROTEIN 6.6 g/dL (6.7-8.2)
[2022-07-01] MEDS ORDERED: POTASSIUM CHLORIDE 20 MEQ TABLET PO STA (21:44)
[2022-07-01 23:04] VITALS: BP 109/72
== END 2022-07-01 23:04 | disposition home or self-care (01) ==
LOC: ED 20:29
DX: R11.2 Nausea with vomiting, unspecified (principal); G70.00 Myasthenia gravis without (acute) exacerbation; I49.8 Other specified cardiac arrhythmias; E87.6 Hypokalemia; R00.0 Tachycardia, unspecified
CPT/HCPCS: 36415; 80053; 81003; 81025; 83690; 85025; 96361; 96374; 96375; 99284; A9270; 81001; 87086

== ENCOUNTER 2022-07-22 06:10 | Emergency (ER) | payer MEDICAID ==
[2022-07-22 07:06] LABS: BASOPHILS % (AUTO) 0.2 %; EOSINOPHILS # (AUTO) 0.1 10^3/uL (0.0-0.7); EOSINOPHILS % (AUTO) 0.7 %; HCT - HEMATOCRIT 39.3 % (37.0-47.0); HGB - HEMOGLOBIN 13.2 g/dL (12.0-16.0); LYMPHOCYTES # (AUTO) 1.4 10^3/uL (1.5-3.5); LYMPHOCYTES % (AUTO) 17.7 %; MEAN CORPUSCULAR HEMOGLOBIN 29.3 pg (27.0-31.0); MEAN CORPUSCULAR HGB CONC 33.6 g/dL (32.0-36.0); MEAN CORPUSCULAR VOLUME 87.1 fL (81.0-99.0); MEAN PLATELET VOLUME 10.1 fL (7.9-10.8); MONOCYTES # (AUTO) 0.6 10^3/uL (0.0-1.0); NEUTROPHILS # (AUTO) 5.9 10^3/uL (1.5-6.6); NEUTROPHILS % (AUTO) 74.2 %; PLT - PLATELET COUNT 249 10^3/uL (130-450); RED BLOOD COUNT 4.51 10^6/uL (4.20-5.40); RED CELL DISTRIBUTION WIDTH 12.3 % (12.0-15.0)
--- NOTE | 2022-07-22 07:18 | ED Physician Documentation ---
PD HPI ABD PAIN - Stated complaint Stated Complaint: ABD PX - Chief complaint Chief Complaint: Abd Pain - History obtained from History obtained from: Patient - History of Present Illness Timing - onset: Yesterday Timing - details: Gradual onset, Still present Quality: Cramping, Aching, Pain Location: Epigastric Radiation: No: Lower back, Right shoulder Worsened by: Eating Associated symptoms: Nausea, Loss of appetite. No: Fever, Vomiting, Diarrhea, Dysuria, Vaginal bleeding Similar symptoms before: No diagnosis Recently seen: Clinic (gets IV fluids every Tuesday for Tx of her POTS.) Review of Systems Constitutional: denies: Fever, Chills Nose: denies: Rhinorrhea / runny nose, Congestion Throat: denies: Sore throat Respiratory: denies: Cough GI: reports: Abdominal Pain, Nausea. denies: Vomiting, Constipation, Diarrhea : denies: Dysuria, Frequency Neurologic: reports: Generalized weakness. 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 : None HEENT: None Psych: None Musculoskeletal: None Derm: None - Past Surgical History Past Surgical History: Yes Cardiovascular: Other HEENT: Tonsil/Adenoidectomy - Present Medications Home Medications: Ambulatory Orders Medication Instructions Recorded Confirmed Omeprazole 20 mg PO BID 11/06/19 05/28/21 Amitriptyline [Elavil] 20 mg PO DAILY 11/03/20 05/28/21 Desvenlafaxine Succinate [Pristiq] 50 mg PO DAILY 11/03/20 05/28/21 Gabapentin [Neurontin] 900 mg PO TID 11/03/20 05/28/21 Pyridostigmine [place] [Mestinon] 30 mg PO BID 11/03/20 05/28/21 Propranolol [Inderal] 20 mg PO DAILY 01/08/21 05/28/21 Propranolol [Inderal] 40 mg PO DAILY PM 01/08/21 05/28/21 predniSONE [Prednisone] 7 mg PO DAILY 01/08/21 05/28/21 Promethazine Supp [Phenergan Supp] 25 mg ID Q6H PRN #10 supp 07/22/22 - Allergies Allergies/Adverse Reactions: Allergies Allergy/AdvReac Type Severity Reaction Status Date / Time adhesive tape AdvReac Rash Verified 07/22/22 06:23 ivig AdvReac Cramps Uncoded 07/01/22 20:48 - Social History Does the pt smoke?: No Smoking Status: Never smoker Does the pt drink ETOH?: No Does the pt have substance abuse?: No - Immunizations Immunizations are current?: Yes - POLST Patient has POLST: No PD ED PE NORMAL - Vitals Vital signs reviewed: Yes - General General: Alert and oriented X 3, Well developed/nourished - HEENT HEENT: PERRL, EOMI, Ears normal, Moist mucous membranes, Pharynx benign - Neck Neck: Supple, no meningeal sign, No adenopathy - Cardiac Cardiac: No murmur. No: RRR (regular but tachycardic) - Respiratory Respiratory: No respiratory distress, Clear bilaterally - Abdomen Abdomen: Normal bowel sounds, Soft, Non distended, No organomegaly, Other (tender with some guarding epigastric area. No percussion nor rebound tenderness. ) - Female Female : Deferred - Rectal Rectal: Deferred - Back Back: No CVA TTP - Derm Derm: Normal color, Warm and dry - Extremities Extremities: Normal ROM s pain, No edema, No calf tenderness / cord - Neuro Neuro: Alert and oriented X 3, No motor deficit, Normal speech Results - Vitals Vitals: Vital Signs - 24 hr 07/22/22 07/22/22 07/22/22 06:20 06:23 07:05 Temperature 36.1 C L Heart Rate 112 H Respiratory 18 17 18 Rate Blood Pressure 123/83 H O2 Saturation 97 07/22/22 07/22/22 09:00 11:00 Temperature Heart Rate 89 90 Respiratory 15 16 Rate Blood Pressure 110/70 114/65 O2 Saturation 100 99 Oxygen O2 Source Room air - Labs Labs: Laboratory Tests 07/22/22 07/22/22 07/22/22 06:50 06:50 08:59 WBC 8.0 RBC 4.51 Hgb 13.2 Hct 39.3 MCV 87.1 MCH 29.3 MCHC 33.6 RDW 12.3 Plt Count 249 MPV 10.1 Neut # (Auto) 5.9 Lymph # (Auto) 1.4 L [place] # (Auto) 0.6 Eos # (Auto) 0.1 Baso # (Auto) 0.0 Absolute Nucleated RBC 0.00 Nucleated RBC % 0.0 Sodium 138 Potassium 4.0 Chloride 102 Carbon Dioxide 25 Anion Gap 11.0 BUN 7 Creatinine 0.8 Estimated GFR (MDRD) 90 Glucose 93 Calcium 9.4 Total Bilirubin 0.5 AST 53 H ALT 112 H Alkaline Phosphatase 88 Total Protein 7.2 Albumin 4.1 Globulin 3.1 Albumin/Globulin Ratio 1.3 Lipase 28 Urine Color YELLOW Urine Clarity CLEAR Urine pH 7.0 Ur Specific [place] 1.010 Urine Protein NEGATIVE Urine Glucose (UA) NEGATIVE Urine Ketones 15 H Urine Occult Blood NEGATIVE Urine Nitrite NEGATIVE Urine Bilirubin NEGATIVE Urine Urobilinogen 0.2 (NORMAL) Ur Leukocyte Esterase NEGATIVE Ur Microscopic Review NOT INDICATED Urine Culture Comments NOT INDICATED Urine HCG, Qual 07/22/22 08:59 WBC RBC Hgb Hct MCV MCH MCHC RDW Plt Count MPV Neut # (Auto) Lymph # (Auto) [place] # (Auto) Eos # (Auto) Baso # (Auto) Absolute Nucleated RBC Nucleated RBC % Sodium Potassium Chloride Carbon Dioxide Anion Gap BUN Creatinine Estimated GFR (MDRD) Glucose Calcium Total Bilirubin AST ALT Alkaline Phosphatase Total Protein Albumin Globulin Albumin/Globulin Ratio Lipase Urine Color Urine Clarity Urine pH Ur Specific [place] Urine Protein Urine Glucose (UA) Urine Ketones Urine Occult Blood Urine Nitrite Urine Bilirubin Urine Urobilinogen Ur Leukocyte Esterase Ur Microscopic Review Urine Culture Comments Urine HCG, Qual NEGATIVE PD MEDICAL DECISION MAKING - ED course Complexity details: reviewed results (Elevation of the AST only. More likely from vomiting. Not a pattern of elevated LFTs. Consider potential biliary colic but at least as of a year ago on a CT scan, no gallstones. Seems more d irectly related to eating so presume gastritis or ulcer.), re-evaluated patient (moderately improved but not fully. She states opioids give lot of sideeffects and declines. Talked about ketamine low dose for pain, but she is reluctant to try it as many meds have ill side effects. I don't have much else to offer beyond those already given. HR did improved with fluids and meds. ), considered differential, d/w patient ED course: getting close to discharge and patient's mom arrived and asked for all lab results and a list of medications given. Patient consented so I gave printout of info. The isolated elevation AST did not seem clinically significant to me, and I conveyed such. Again we discussed potential meds for the pain and patient did not wish any further meds for concern of side effects. Departure - Departure Disposition: 01 Home, Self Care Clinical Impression: Epigastric abdominal pain, Nausea and vomiting Condition: Stable Record reviewed to determine appropriate education?: Yes Instructions: ED PUD Vs Gastritis Follow-Up: Pradip Sarmiento MD [Primary Care Provider] - Prescriptions: Promethazine Supp [Phenergan Supp] 25 mg ID Q6H PRN #10 supp PRN Reason: Nausea / Vomiting Comments: This seems likely to be irritation of your stomach itself (gastritis versus ulcer or reflux). In the short-term I would suggest doubling your omeprazole from once daily to twice daily for the next 7 to 10 days. Also add on the Carafate/sucralfate 2-3 times daily and particularly before bed for the next 5 or 6 days as well. Continue with the ondansetron if needed for nausea. If you are having vomiting and unable to keep down medications, you could also add promethazine/Phenergan antiemetic suppositories. I sent a prescription for those to [facility] pharmacy in [place]. Recheck if not improving well over the next several days to your baseline. If persisting symptoms, follow-up with your primary care. Consideration could be doing a stool test to look for a germ in the stomach lining called Helicobacter if you are not readily improving through the week. Return as needed. Discharge Date/Time: 07/22/22 11:39
[2022-07-22 07:20] LABS: ALBUMIN 4.1 g/dL (3.2-5.5); ALBUMIN/GLOBULIN RATIO 1.3 (1.0-2.2); BILIRUBIN,TOTAL 0.5 mg/dL (0.2-1.0); CALCIUM 9.4 mg/dL (8.5-10.3); CREATININE 0.8 mg/dL (0.4-1.0); TOTAL PROTEIN 7.2 g/dL (6.7-8.2)
[2022-07-22] MEDS ORDERED: FAMOTIDINE 20 MG/2 ML VIAL IVP STA (07:35)
[2022-07-22] MEDS ORDERED: diphenhydrAMINE ELIXIR 25 MG/10 ML UDC PO STA (07:35)
[2022-07-22] MEDS ORDERED: SODIUM CHLORIDE 0.9% 1,000 ML IV STA ×2 (07:35→09:18)
[2022-07-22] MEDS ORDERED: LIDOCAINE VISCOUS 2% 15 ML UDC MM STA (07:35)
[2022-07-22] MEDS ORDERED: KETOROLAC 15 MG/ML VIAL IVP STA (07:35)
[2022-07-22] MEDS ORDERED: ONDANSETRON 4 MG/2 ML VIAL IVP STA (07:35)
[2022-07-22] MEDS ORDERED: MAG HYDROX/AL HYDROX/SIMETH 30 ML UDC PO STA (07:36)
[2022-07-22 09:18] LABS: BILIRUBIN,URINE NEGATIVE (NEGATIVE); GLUCOSE, URINE (UA) NEGATIVE (NEGATIVE); KETONES,URINE (UA) 15 mg/dL (NEGATIVE); LEUKOCYTE ESTERASE, URINE NEGATIVE (NEGATIVE); NITRITE,URINE NEGATIVE (NEGATIVE); OCCULT BLOOD,URINE NEGATIVE (NEGATIVE); PROTEIN,URINE NEGATIVE (NEGATIVE); UROBILINOGEN,URINE 0.2 (NORMAL) E.U./dL (NORMAL)
[2022-07-22 09:28] LABS: CLARITY,URINE CLEAR (CLEAR)
[2022-07-22 09:32] LABS: HCG UR QUAL NEGATIVE
[2022-07-22] MEDS ORDERED: SUCRALFATE 1 GM/10 ML UDC PO STA (10:08)
[2022-07-22 11:10] VITALS: BP 114/65
== END 2022-07-22 11:39 | disposition home or self-care (01) ==
LOC: ED 06:10
DX: R10.13 Epigastric pain (principal); R11.2 Nausea with vomiting, unspecified
CPT/HCPCS: 36415; 80053; 81003; 81025; 83690; 85025; 96361; 96374; 96375; 99284; A9270; 81001; 87086